=== PATIENT | female | born 1955 | race Hispanic/Latino ===

== ENCOUNTER 2019-09-14 11:31 | Emergency (ER) | payer OTHER ==
--- OUTSIDE RECORDS SUMMARY | 2019-09-14 11:33 | XMS REPORT ---
:1955 Author Organization eClinicalWorks Care Team Providers Name Role Phone Esther Garza Provider Role Unavailable Allergies, Adverse Reactions, Alerts Substance Reaction Event Type codeine Info Not Available Drug Allergy Problems Problem Type Condition Code Onset Dates Condition Status Problem Cancer C80.1 Active Problem Migraine G43.909 Active Problem Hypermagnesemia E83.41 Active Problem Change in bowel movement R19.8 Active Problem Dizziness R42 Active Problem Liver transplant status Z94.4 Active Problem Depression with anxiety F41.8 Active Problem Right wrist pain M25.531 Active Problem Hypertension, unspecified type I10 Active Assessment Liver transplant status Z94.4 Active Assessment Hypermagnesemia E83.41 Active Assessment Dizziness R42 Active Assessment Depression with anxiety F41.8 Active Assessment Hypertension, unspecified type I10 Active Medications Medication Code Code Instructions Start End Status Dosage System Date Date Cymbalta [facility] 92164308516 60 MG Orally Active 1 capsule Twice a day Zofran [facility] 49552511823 4 MG Orally Active not defined Lisinopril [facility] 53999511070 20 mg Orally December 13, Active 1 tablet Once a day 2017 Zoloft [facility] 14392760414 100 mg Orally Active 1 tablet Once a day Tacrolimus [facility] 37919187711 1 MG Orally Active not defined Sumatriptan [facility] [address]-84 6 MG/0.5ML Active 0.5 ml as Succinate Subcutaneous needed Twice a day Losartan [facility] 68374961233 50 MG Orally Active 1 tablet Potassium Once daily for high blood pressure Cymbalta [facility] 29893944413 30 MG Orally December 07, Active 1 capsule Once a day 2017 Amlodipine [facility] 78470364398 10 MG Orally Active 1 tablet Besylate Once a day for high blood pressure Pantoprazole [facility] 61557464984 40 MG Orally Active 1 tablet Sodium Once a day Ursodiol [facility] 27426131080 300 MG Orally Active not defined Magnesium Oxide [facility] 98873901200 400 MG Orally Active 1 tablet Once a day as needed Sertraline HCl [facility] 23667176733 100 mg Orally October Active 1 tablet Once a day 2017 Results No Known Results Summary Purpose eClinicalWorks Submission
--- OUTSIDE RECORDS SUMMARY | 2019-09-14 11:33 | XMS REPORT ---
:1955 Author Organization [employer] Care Team Providers Name Role Phone Esther Garza Provider Role Unavailable Allergies, Adverse Reactions, Alerts Substance Reaction Event Type codeine Info Not Available Drug Allergy Problems Problem Type Condition Code Onset Dates Condition Status Assessment Hypertension, unspecified type I10 Active Problem Migraine G43.909 Active Assessment Depression with anxiety F41.8 Active Assessment Liver transplant status Z94.4 Active Assessment Hypermagnesemia E83.41 Active Problem Change in bowel movement R19.8 Active Problem Right wrist pain M25.531 Active Problem Hypermagnesemia E83.41 Active Problem Depression with anxiety F41.8 Active Problem Cancer C80.1 Active Problem Hypertension, unspecified type I10 Active Problem Liver transplant status Z94.4 Active Medications Medication Code Code Instructions Start End Status Dosage System Date Date Ursodiol [facility] 06057708795 300 MG Orally Active not defined Zoloft [facility] 71967944597 100 mg Orally Active 1 tablet Once a day Sumatriptan [facility] [address]-26 6 MG/0.5ML Active 0.5 ml as Succinate Subcutaneous needed Twice a day Amlodipine [facility] 88476095818 10 MG Orally Active 1 tablet Besylate Once a day for high blood pressure Lisinopril [facility] 07614159416 20 mg Orally December 13, Active 1 tablet Once a day 2017 Pantoprazole [facility] 12713736699 40 MG Orally Active 1 tablet Sodium Once a day Tacrolimus [facility] 10102157479 1 MG Orally Active not defined Sertraline HCl ND 06861021187 100 mg Orally October Active 1 tablet Once a day 2017 Zofran [facility] 75195360100 4 MG Orally Active not defined Losartan [facility] 69275048133 25 mg Orally Active 1 tablet Potassium Once daily for high blood pressure Cymbalta [facility] 34642090635 30 MG Orally December 07, Active 1 capsule Once a day 2017 Cymbalta [facility] 18713418726 60 MG Orally Active 1 capsule Twice a day Magnesium Oxide [facility] 74379911558 400 MG Orally Active 1 tablet Once a day as needed Results No Known Results Summary Purpose eClinicalWorks Submission
--- OUTSIDE RECORDS SUMMARY | 2019-09-14 11:34 | XMS REPORT ---
:1955 [facility] Team Providers Name Role Phone Esther Garza Provider Role Unavailable Allergies No Known Allergies Problems Problem Type Condition Code Onset Dates Condition Status Problem Cancer C80.1 Active Problem Migraine G43.909 Active Assessment Encounter for immunization Z23 Active Problem Hypermagnesemia E83.41 Active Problem Change in bowel movement R19.8 Active Problem Dizziness R42 Active Problem Liver transplant status Z94.4 Active Problem Depression with anxiety F41.8 Active Problem Right wrist pain M25.531 Active Problem Hypertension, unspecified type I10 Active Medications Medication Code Code Instructions Start End Status Dosage System Date Date Lisinopril [facility] 78524710952 20 mg Orally December 13, Active 1 tablet Once a day 2017 Zoloft [facility] 04078084540 100 mg Orally Active 1 tablet Once a day Cymbalta [facility] 63411652213 60 MG Orally Active 1 capsule Twice a day Zofran [facility] 11453702559 4 MG Orally Active not defined Cymbalta [facility] 58241655644 30 MG Orally December 07, Active 1 capsule Once a day 2017 Pantoprazole [facility] 30027084542 40 MG Orally Active 1 tablet Sodium Once a day Tacrolimus [facility] 02644448142 1 MG Orally Active not defined Sumatriptan [facility] [address]-75 6 MG/0.5ML Active 0.5 ml as Succinate Subcutaneous needed Twice a day Ursodiol [facility] 82681432627 300 MG Orally Active not defined Sertraline HCl [facility] 06031668000 100 mg Orally Nanda Active 1 tablet Once a day 2017 Amlodipine [facility] 08315359431 10 MG Orally Active 1 tablet Besylate Once a day for high blood pressure Losartan [facility] 22455559312 50 MG Orally Active 1 tablet Potassium Once daily for high blood pressure Magnesium Oxide [facility] 80539158686 400 MG Orally Active 1 tablet Once a day as needed Results No Known Results Immunizations Vaccine Administration Date Prevnar 13 -Pneumonia Vaccine Sep 12, 2019 FLUZONE HIGH DOSE OVER 65 Sep 12, 2019 Summary Purpose eClinicalWorks Submission
--- NOTE | 2019-09-14 12:55 | RAD REPORT ---
EXAM DESCRIPTION: Fide Single View09/14/2019 12:44 pm CLINICAL HISTORY: Chest pain COMPARISON: 2013 FINDINGS: Lungs are moderately to markedly hyperaerated The lungs appear clear of acute infiltrate. The heart is normal size IMPRESSION: COPD without visualization acute abnormality
[2019-09-14 13:29] LABS: Absolute Lymphocytes (CBC) 1.9 K/uL (0.7-4.9); Basophils % 0.8 % (0-1.3); Hematocrit 42.6 % (36.0-45.0); Lymphocytes % 26.9 % (15.3-44.8); MPV 8.7 fL (7.6-11.3); RBC Red Blood Cell Count 4.86 M/uL (3.86-4.86)
[2019-09-14 13:38] LABS: Protime INR 0.95
[2019-09-14 13:48] LABS: ALT/SGPT 32 U/L (12-78); AST/SGOT 28 U/L (15-37); Albumin 3.9 g/dL (3.4-5.0); Alkaline Phosphatase 218 U/L (45-117); BUN Blood Urea Nitrogen 16 mg/dL (7-18); Bicarbonate 26 mmol/L (21-32); Bilirubin Direct 0.1 mg/dL (0-0.2); Bilirubin Total 0.4 mg/dL (0.2-1.0); Glucose Level 99 mg/dL (74-106); Magnesium 1.9 mg/dL (1.8-2.4); NT PRO-BNP 58 pg/mL (<125); Potassium 3.6 mmol/L (3.5-5.1); Protein, Total 7.5 g/dL (6.4-8.2); Sodium Level 140 mmol/L (136-145); Troponin (Emerg Dept Use Only) < 0.02 ng/mL (0.0-0.045)
--- NOTE | 2019-09-14 16:28 | ER ---
Nurse's Notes [facility] Name: Debra Oconnell Age: 64 yrs Sex: Female : 1955 Arrival Date: 09/14/2019 Time: 11:32 Bed 13 Private MD: Diagnosis: Chest pain, unspecified Presentation: 09/14 11:38 Presenting complaint: SOB and chest heaviness x 2 days. Pt stated "I think I have hb sepsis and I am a liver transplant patient and I just don't feel right.". Transition of care: patient was not received from another setting of care. Onset of symptoms was September 13, 2019. Risk Assessment: Do you want to hurt yourself or someone else? Patient reports no desire to harm self or others. Care prior to arrival: None. 11:38 Method Of Arrival: Ambulatory 11:38 Acuity: SANCHEZ 3 hb 16:10 Initial Sepsis Screen: Does the patient meet any 2 criteria? No. Patient's initial ph sepsis screen is negative. Does the patient have a suspected source of infection? No. Patient's initial sepsis screen is negative. Historical: - Allergies: 11:42 Codeine (Upset stomach); hb - Home Meds: 11:42 lisinopril 50 mg Oral tab [Active]; amlodipine oral [Active]; hb - PSHx: 11:42 Liver tansplant S/P 2008; Tonsillectomy; hb - Immunization history:: Adult Immunizations up to date. - Coronavirus screen:: The patient has NOT traveled to [place] in the past 14 days. The patient has NOT had contact with known/suspected case of Coronavirus? Proceed with normal triage procedures. - Social history:: Smoking status: Patient reports the use of cigarette tobacco products, smokes one-half pack cigarettes per day. - Ebola Screening: : No symptoms or risks identified at this time. Screenin:09 Abuse screen: Denies threats or abuse. Denies injuries from another. Nutritional ph screening: No deficits noted. Tuberculosis screening: No symptoms or risk factors identified. Fall Risk None identified. Assessment: 12:15 General: Appears in no apparent distress. comfortable, slender, well groomed, Behavior ph is cooperative, appropriate for age, anxious, Denies fever, feeling ill. Pain: Complains of pain in chest Pain does not radiate. Pain currently is 1 out of 10 on a pain scale. Quality of pain is described as "tightness". Neuro: Level of Consciousness is awake, alert, obeys commands, Oriented to person, place, time, situation. Cardiovascular: Capillary refill < 3 seconds in bilateral fingers Patient's skin is warm and dry. Respiratory: Airway is patent Respiratory effort is even, unlabored, Respiratory pattern is regular, symmetrical, Denies shortness of breath. GI: No signs and/or symptoms were reported involving the gastrointestinal system. Derm: Skin is intact, is healthy with good turgor, Skin is pink, warm \\T\\ dry. 14:00 Reassessment: Patient appears in no apparent distress at this time. Patient and/or ph family updated on plan of care and expected duration. Pain level reassessed. Patient is alert, oriented x 3, equal unlabored respirations, skin warm/dry/pink. 15:00 Reassessment: Patient appears in no apparent distress at this time. Patient and/or ph family updated on plan of care and expected duration. Pain level reassessed. Patient is alert, oriented x 3, equal unlabored respirations, skin warm/dry/pink. 16:12 Reassessment: Patient appears in no apparent distress at this time. Patient and/or ph family updated on plan of care and expected duration. Pain level reassessed. Patient is alert, oriented x 3, equal unlabored respirations, skin warm/dry/pink. Pt resting comfortably, awaiting results of repeat cardiac enzymes. Vital Signs: 11:42 BP 150 / 115; Pulse 110; Resp 16; Temp 98; Pulse Ox 100% on R/A; Weight 52.16 kg; hb Height 5 ft. 2 in. (157.48 cm); Pain 0/10; 13:00 BP 147 / 98; Pulse 86; Resp 18; Pulse Ox 99% on R/A; ph 14:54 BP 136 / 97; Pulse 84; Resp 18; Pulse Ox 98% on R/A; ph 16:13 BP 146 / 92; Pulse 83; Resp 18; Pulse Ox 98% on R/A; ph 16:40 Temp 97.8; ph 11:42 Body Mass Index 21.03 (52.16 kg, 157.48 cm) hb ED Course: 11:32 Patient arrived in ED. as 11:39 Triage completed. hb 11:42 Arm band placed on. hb 11:44 Margarita Delgado, RN is Primary Nurse. ph 11:49 Bib Oviedo MD is Attending Physician. kdr 12:43 X-ray completed. Portable x-ray completed in exam room. Patient tolerated procedure jb2 well. 12:46 XRAY Chest (1 view) In Process Unspecified. EDMS 13:15 Initial lab(s) drawn, by me, sent to lab. Inserted saline lock: 22 gauge in right ph antecubital area, using aseptic technique. 13:22 EKG done, by technical support associate. reviewed by Bib Oviedo MD. tc 16:10 Patient has correct armband on for positive identification. monitoring tech on. Pulse ph ox on. NIBP on. Door closed. Noise minimized. Warm blanket given. 16:11 No provider procedures requiring assistance completed. Patient maintains SpO2 ph saturation greater than 95% on room air. 16:48 IV discontinued, intact, bleeding controlled, No redness/swelling at site. Pressure hb dressing applied. Administered Medications: No medications were administered Outcome: 16:27 Discharge ordered by . kdr 16:48 Discharged to home ambulatory, with significant other. hb 16:48 Condition: stable 16:48 Discharge instructions given to patient, significant other, Instructed on discharge instructions, follow up and referral plans. medication usage, Demonstrated understanding of instructions, follow-up care, medications, Prescriptions given X 1. 16:48 Patient left the ED. hb Signatures: Dispatcher [employer] EDPA Bib Oviedo MD MD [facility] [address] Lyle Leyva jb2 Karla Travis Tiffany, pet caretaker EKG Ttc Margarita Delgado, RN RN Carlene Palumbo, EMIR RN hb
--- NOTE | 2019-09-14 16:28 | EDPHYS ---
Physician Documentation [facility] Name: Debra Oconnell Age: 64 yrs Sex: Female : 1955 Arrival Date: 09/14/2019 Time: 11:32 Bed 13 Private MD: ED Physician Bib Oviedo HPI: 09/14 14:26 This 64 yrs old Female presents to ER via Ambulatory with complaints of Chest kdr Pain. 14:26 The patient or guardian reports chest pain that is located primarily in the anterior kdr chest wall, bilaterally. Onset: gradually, 2 day(s) ago. The pain does not radiate. Associated signs and symptoms: Pertinent positives: Tingling to the 4th and 5th finger of the left hand. The chest pain is described as aching, dull, a pressure. Duration: The patient or guardian reports a single episode, that is still ongoing, but improving. Severity of pain: At its worst the pain was moderate severe in the emergency department the pain has improved markedly. The patient has not experienced similar symptoms in the past. The patient has not recently seen a physician. The patient is a liver transplant recipient and is concerned that she may be septic. Historical: - Allergies: 11:42 Codeine (Upset stomach); hb - Home Meds: 11:42 lisinopril 50 mg Oral tab [Active]; amlodipine oral [Active]; hb - PSHx: 11:42 Liver tansplant S/P 2008; Tonsillectomy; hb - Immunization history:: Adult Immunizations up to date. - Coronavirus screen:: The patient has NOT traveled to [place] in the past 14 days. The patient has NOT had contact with known/suspected case of Coronavirus? Proceed with normal triage procedures. - Social history:: Smoking status: Patient reports the use of cigarette tobacco products, smokes one-half pack cigarettes per day. - Ebola Screening: : No symptoms or risks identified at this time. ROS: 14:26 Constitutional: Negative for fever, chills, and weight loss, Eyes: Negative for injury, kdr pain, redness, and discharge, ENT: Negative for injury, pain, and discharge, Neck: Negative for injury, pain, and swelling, Respiratory: Negative for shortness of breath, cough, wheezing, and pleuritic chest pain, Abdomen/GI: Negative for abdominal pain, nausea, vomiting, diarrhea, and constipation, Back: Negative for injury and pain, : Negative for injury, bleeding, discharge, and swelling, MS/Extremity: Negative for injury and deformity, Skin: Negative for injury, rash, and discoloration, Neuro: Negative for headache, weakness, numbness, tingling, and seizure activity. Psych: Negative for depression, anxiety, suicide ideation, homicidal ideation, and hallucinations. Exam: 14:26 Constitutional: This is a well developed, well nourished patient who is awake, alert, kdr and in no acute distress. Head/Face: Normocephalic, atraumatic. Eyes: Pupils equal round and reactive to light, extra-ocular motions intact. Lids and lashes normal. Conjunctiva and sclera are non-icteric and not injected. Cornea within normal limits. Periorbital areas with no swelling, redness, or edema. Neck: Trachea midline, no thyromegaly or masses palpated, and no cervical lymphadenopathy. Supple, full range of motion without nuchal rigidity, or vertebral point tenderness. No Meningismus. Chest/axilla: Normal chest wall appearance and motion. Nontender with no deformity. No lesions are appreciated. Cardiovascular: Regular rate and rhythm with a normal S1 and S2. No gallops, murmurs, or rubs. Normal PMI, no JVD. No pulse deficits. Respiratory: Lungs have equal breath sounds bilaterally, clear to auscultation and percussion. No rales, rhonchi or wheezes noted. No increased work of breathing, no retractions or nasal flaring. Abdomen/GI: Soft, non-tender, with normal bowel sounds. No distension or tympany. No guarding or rebound. No evidence of tenderness throughout. Back: No spinal tenderness. No costovertebral tenderness. Full range of motion. Skin: Warm, dry with normal turgor. Normal color with no rashes, no lesions, and no evidence of cellulitis. MS/ Extremity: Pulses equal, no cyanosis. Neurovascular intact. Full, normal range of motion. Neuro: Awake and alert, GCS 15, oriented to person, place, time, and situation. Cranial nerves II-XII grossly intact. Motor strength 5/5 in all extremities. Sensory grossly intact. Cerebellar exam normal. Normal gait. Psych: Awake, alert, with orientation to person, place and time. Behavior, mood, and affect are within normal limits. Vital Signs: 11:42 BP 150 / 115; Pulse 110; Resp 16; Temp 98; Pulse Ox 100% on R/A; Weight 52.16 kg; hb Height 5 ft. 2 in. (157.48 cm); Pain 0/10; 13:00 BP 147 / 98; Pulse 86; Resp 18; Pulse Ox 99% on R/A; ph 14:54 BP 136 / 97; Pulse 84; Resp 18; Pulse Ox 98% on R/A; ph 16:13 BP 146 / 92; Pulse 83; Resp 18; Pulse Ox 98% on R/A; ph 16:40 Temp 97.8; ph 11:42 Body Mass Index 21.03 (52.16 kg, 157.48 cm) hb MDM: 14:26 Data reviewed: vital signs, nurses notes, lab test result(s), EKG, radiologic studies. kdr Counseling: I had a detailed discussion with the patient and/or guardian regarding: the historical points, exam findings, and any diagnostic results supporting the discharge/admit diagnosis, lab results, radiology results, the need for outpatient follow up. 16:27 Patient medically screened. [facility] 09/14 12:28 Order name: Basic Metabolic Panel; Complete Time: 14:23 kdr 09/14 12:28 Order name: CBC with Diff; Complete Time: 14:23 kdr 09/14 12:28 Order name: LFT's; Complete Time: 14:23 kdr 09/14 12:28 Order name: Magnesium; Complete Time: 14:23 [facility] 09/14 12:28 Order name: NT PRO-BNP; Complete Time: 14:23 kdr 09/14 12:28 Order name: PT-INR; Complete Time: 14:23 kdr 09/14 12:28 Order name: Troponin (emerg Dept Use Only); Complete Time: 14:23 kdr 09/14 12:28 Order name: XRAY Chest (1 view); Complete Time: 14:23 kdr 09/14 12:28 Order name: EKG; Complete Time: 12:30 kdr 09/14 12:28 Order name: Cardiac monitoring; Complete Time: 19:59 kdr 09/14 12:28 Order name: EKG - Nurse/Tech; Complete Time: 19:59 kdr 09/14 12:28 Order name: IV Saline Lock; Complete Time: 19:59 kdr 09/14 12:28 Order name: Labs collected and sent; Complete Time: 19:59 kdr 09/14 14:24 Order name: Troponin (emerg Dept Use Only); Complete Time: 16:26 kdr 09/14 12:28 Order name: O2 Per Protocol; Complete Time: 19:59 kdr 09/14 12:28 Order name: O2 Sat Monitoring; Complete Time: 19:59 kdr Administered Medications: No medications were administered Disposition: 09/14/19 16:27 Discharged to Home. Impression: Chest pain, unspecified. - Condition is Stable. - Discharge Instructions: Nonspecific Chest Pain, [id number]. - Prescriptions for Pepcid 20 mg Oral Tablet - take 1 tablet by ORAL route every 12 hours for 10 days; 20 tablet. - Medication Reconciliation Form, Thank You Letter form. - Follow up: Private Physician; When: 2 - 3 days; Reason: If symptoms return, Further diagnostic work-up, Recheck today's complaints, Continuance of care, Re-evaluation by your physician. - Problem is new. - Symptoms have improved. Signatures: Dispatcher [employer] EDMS Bib Oviedo MD MD kdr Carlene Palumbo RN RN hb Corrections: (The following items were deleted from the chart) 16:48 16:27 09/14/2019 16:27 Discharged to Home. Impression: Chest pain, unspecified. hb Condition is Stable. Forms are Medication Reconciliation Form, Thank You Letter, Antibiotic Education, Prescription Opioid Use. Follow up: Private Physician; When: 2 - 3 days; Reason: If symptoms return, Further diagnostic work-up, Recheck today's complaints, Continuance of care, Re-evaluation by your physician. Problem is new. Symptoms have improved. kdr
[2019-09-14 16:59] VITALS: TEMP 98
[2019-09-14 17:02] VITALS: O2SAT 98
[2019-09-14 17:03] VITALS: BP 146/92
--- NOTE | 2019-09-15 16:29 | EKG ---
Test Date: 2019-09-14 Test Time: 13:15:14 Plastics Tooling Engineer: BREA MEASUREMENT RESULTS: Intervals: Rate: 93 [place]: 172 QRSD: 78 QT: 362 QTc: 450 [place]: P: 72 [place]: 172 QRS: 41 T: 76 INTERPRETIVE STATEMENTS: Sinus rhythm with occasional premature ventricular complexes Septal infarct, age undetermined Abnormal ECG Compared to ECG 06/23/2014 00:42:58 Ventricular premature complex(es) now present Myocardial infarct finding still present Electronically Signed On 09-15-19 16:27:47 QUALITY ASSURANCE ADVISOR by Alek Smiley
== END 2019-09-14 16:48 | disposition home or self-care (01) ==
LOC: ER 11:31
DX: R07.9 Chest pain, unspecified (principal); Z88.6 Allergy status to analgesic agent; Z94.4 Liver transplant status; F17.210 Nicotine dependence, cigarettes, uncomplicated
CPT/HCPCS: 36415; 71045; 80048; 80076; 83735; 83880; 84484; 85025; 85610; 93005; 99285

== ENCOUNTER 2023-03-16 12:24 | Inpatient (IN) | payer OTHER ==
--- OUTSIDE RECORDS SUMMARY | 2023-03-16 12:31 | XMS REPORT | Continuity of Care Document ---
:1955 Author Organization [facility] t Address [address] [place] [address] Care Team Providers Name Role Phone Mary HOBBS, Luis Fernando Ross Primary Care Physician [phone] Alexa Mathews Attending Clinician Unavailable Esther Garza Attending Clinician Unavailable LAB90 Attending Clinician Unavailable NATA CAREY Attending Clinician Unavailable SHEMAR REEVES Attending Clinician Unavailable Hallie Clemons Attending Clinician Mare HOBBS, Wilfredo Handy Attending Clinician Ankit Man MD Attending Clinician Alan PEARSONSWChantell Attending Clinician Unavailable Elva HOBBS, Merlin Attending Clinician Palmer José MD Attending Clinician Neli Sarkar MA Attending Clinician Unavailable Travis Eid MD Attending Clinician Melony Turner RN Attending Clinician Unavailable Samuel FIELD, Jason Attending Clinician Unavailable Abbie FIELD, Sandee Attending Clinician Unavailable ANIL LOTT Attending Clinician Unavailable Aurelio GONZALEZ, Nata Attending Clinician Harsh-Nahum_A_AH Attending Clinician Unavailable Reggie_A_AH Admitting Clinician Unavailable Payers Payer Name Policy Type Policy Number Effective Date Expiration Date Cecile casey [employer] [place]P 7 [id number] 2021 CLASSIC NO 00:00:00 PREMIUM R2T [employer] C1 [id number] 2018 Common Sp allison PLANS 00:00:00 - [facility] [place]LLCARE OF [place] [id number] 2019 - [place] 00:00:00 (MEDICARE REPLACEMENT/ADV ANTAGE - HMO) Problems Condition Condition Condition Status Onset Resolution Last Treating Co mments Source Name Details Category Date Date Treatment Clinician Date 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 00:00: - depression depression 00 Ex terna l Hyperlipid Hyperlipid Disease Active K litzy emia emia 01-02 Seybold 00:00: - 00 Externa l Hyperlipid Hyperlipid Disease Active K litzy [place] emia 01-02 Seybold associated associated 00:00: with type with type 00 2 diabetes 2 diabetes mellitus mellitus Hypertensi Hypertensi Disease Active K elsey ve kidney ve kidney 01-02 Seyb old disease disease 00:00: - 00 Externa l Inguinal Inguinal Disease Active Metho di hernia hernia 08-06 st 00:00: Hospita 00 l Bilateral Bilateral Disease Active Met hodi inguinal inguinal 07-28 st hernia hernia 00:00: Hospita without without 00 l obstructio obstructio n or n or gangrene gangrene Liver Liver Disease Active 2015-07 [facility] transplant transplant 09-21 recipient recipient 00:00: Hosp claudia 00 l [id number] Depression Problem Active Com mon with Spirit anxiety - [facility] Cancer Cancer Problem Active Common [facility] [id number] Hypertensi Problem Active Com mon on, Spirit unspecifie - CHI d type [facility] [id number] Hypermagne Problem Active Com mon semia [facility] [id number] Elevated Problem Active Comm on alkaline Spirit phosphatas - CHI e level [facility] [id number] Hyperkalem Problem Active Com mon ia [facility] [id number] Hypercalce Problem Active Com mon boogie Spirit [facility] [id number] Labial Problem Active Common lesion [facility] [id number] Stage 3 Problem Active Commo n chronic Spirit kidney - CHI disease [facility] [id number] Type II Problem Active Common diabetes Spirit mellitus - [facility] Allergies, Adverse Reactions, Alerts Allergy Allergy Status Severity Reaction(s) Onset Inactive Treating Comm ents Source Name Type Date Date Clinician Sulfa Propensi Active Samira Drugs ty to 5-15 Seybold adverse 00:00: - reaction 00 Externa s l Codeine Propensi Active Other 2015-07 Nausea Samira ty to 16 and Seybold adverse 00:00: vomiting - reaction 00 Externa s l Codeine Propensi Active Other (See 2015-07 Nausea Met hodi ty to Comments) 09-[address] adverse 00:00: vomiting Hospita reaction 00 l s to drug codeine codeine Active Unknown Common [facility] - [facility] Social History Social Habit Start Date Stop Date Quantity Comments Source Gender identity [facility] Sexual orientation [facility] History of Tobacco Common [facility] - Use [facility] Tobacco use and 2023-01-03 2023-01-03 Smokeless Samira Se ybold - exposure 00:00:00 00:00:00 tobacco non-user External History of Social 2022-10-22 2022-10-[address] function 00:00:00 00:00:00 Hospital Alcohol intake 2020-05-07 2020-05-07 Current drinker [facility] dist 00:00:00 00:00:00 of alcohol Hospital (finding) Cigarettes smoked 2016-07-28 2016-07-[address] current (pack per 00:00:00 00:00:00 Hospita l day) - Reported Alcohol Comment 2016-07-28 2016-07-28 but quit 1 week Meth odist 00:00:00 00:00:00 ago Hospital Sex Assigned At [birth year] [facility] 00[facility] Smoking Status Start Date Stop Date Source Never smoked tobacco Samira Murphyyb old - External Former Smoker 2020-11-23 00:00:00 2020-11-23 00:00:00 Common S pirit - [facility] Ce nter Medications Ordered Filled Start Stop Current Ordering Indication Dosage Frequency Signature Comments Components Source Medication Medication Date Date Medication? Clinician (SIG) Name Name Pantoprazol Yes 40mg 1 tablet Ke lsey e Sodium 40 8-23 (40 mg Seybol d MG oral 08:59: total) by - Tablet 42 other Externa Delayed route. l Response Pantoprazol Yes 20mg 1 tablet Ke lsey e Sodium 20 8-23 (20 mg Seybol d MG oral 08:59: total) by - Tablet 42 other Externa Delayed route. l Response Biotin 1 MG Yes Biotin Martina ey oral 03-16 Seybold Capsule 08:58: - 49 Externa l Calcium Yes Take by Samira Carb-Cholec 03-16 mouth 3 Seybo ld alciferol 08:58: times - (Calcium 49 daily Externa 500 + D) l 500-125 MG-UNIT oral Tablet Multiple Yes Multi For Martina ey Vitamin 03-16 Her Seybold (MULTI-KITTY 08:58: - MIN DAILY 49 Externa OR) l Lancets Yes See Admin Kelse y does not 03-16 Instructio Seybo ld apply Misc 08:58: ns - 49 Externa l SUMAtriptan 2022- No every 12 K elsey Succinate 6 03-16-23 hours Seybol d MG/0.5ML 08:58: 00:00 - subcutaneou 09 :00 Externa s Solution l Auto-inject or Ondansetron 2022- No by other K elsey HCl 03-16 route Seybold (Zofran) 4 08:57: 00:00 - MG oral 02 :00 Externa Tablet l Calcium 2022- No Samira Citrate-Vit 03-16 Seybold porter D 08:56: 00:00 - (Calcium 05 :00 Externa Citrate + l D3) 200-250 MG-UNIT oral Tablet Budesonide- Yes [id number] 2{puff} Inhale 2 Samira Formoterol 03-16 puffs into Alvaro bold Fumarate 00:00: the lungs - (Symbicort) 00 2 times Exter na 160-4.5 daily. l MCG/ACT inhalation Aerosol Fluoxetine Yes [id number] 40mg Take 2 Samira HCl 20 MG 03-16 capsules Seybol d oral 00:00: (40 mg - Capsule 00 total) by Externa mouth l daily. Fluoxetine 2022- No [id number] 40mg Take 2 Samira HCl 20 MG 03-15 capsules Seybo ld oral 00:00: 00:00 by mouth - Capsule 00 :00 once daily Structures Engineer a l tacrolimus 2025- Yes [id number] .5mg QD Take 1 [facility] (Prograf) 03-[address] 0.5 MG 00:00: 04:59 (0.5 mg Hospita capsule 00 :00 total) by l mouth nightly. Biotin 1 MG Yes Biotin Martina ey oral 03-01 Seybold Capsule 07:52: - 15 Externa l Calcium Yes Take by Samira Carb-Cholec 03-01 mouth 3 Seybo ld alciferol 07:52: times - (Calcium 15 daily Externa 500 + D) l 500-125 MG-UNIT oral Tablet Calcium Yes Samira Citrate-Vit 03-01 Seybold porter D 07:52: - (Calcium 15 Externa Citrate + l D3) 200-250 MG-UNIT oral Tablet Multiple Yes Multi For Martina ey Vitamin 03-01 Her Seybold (MULTI-KITTY 07:52: - MIN DAILY 15 Externa OR) l SUMAtriptan Yes every 12 Ke lsey Succinate 6 8-08 hours Seybold MG/0.5ML 07:52: - subcutaneou 15 Externa s Solution l Auto-inject or Lancets Yes See Admin Kelse y does not 03-01 Instructio Seybo ld apply Misc 07:52: ns - 15 Externa l Ondansetron Yes by other Ke lsey HCl 03-01 route Seybold (Zofran) 4 07:52: - MG oral 15 Externa Tablet l Pantoprazol Yes 40mg 1 tablet Ke lsey e Sodium 40 8-08 (40 mg Seybol d MG oral 07:52: total) by - Tablet 15 other Externa Delayed route l Response Pantoprazol Yes 20mg 1 tablet Ke lsey e Sodium 20 8-08 (20 mg Seybol d MG oral 07:52: total) by - Tablet 15 other Externa Delayed route l Response Ondansetron Yes [id number] 4mg Q.[id number] Take 1 Samira (ZOFRAN) 4 8-08 [id number] tablet (4 Seybold MG oral 00:00: 3D mg total) - TABLET 00 by mouth Externa DISPERSIBLE every 8 l hours as needed for nausea Diphenoxyla Yes [id number] 1{tbl} Q.25D Take 1 Samira te-Atropine 8-08 tablet by Alvaro shen (Lomotil) 00:00: mouth 4 - 2.5-0.025 00 times Externa MG oral daily as l Tablet needed for diarrhea Azithromyci 2022-0 Yes [id number] Take 2 Samira n 500 MG 8-08 tabs today Seybo ld oral Tablet 00:00: and 1 tab - 00 for daily Externa for 4 days l Ondansetron 2022-0 Yes [id number] 4mg Q.[id number] Take 1 Samira (ZOFRAN) 4 8-08 [id number] tablet (4 Seybold MG oral 00:00: 3D mg total) - TABLET 00 by mouth Externa DISPERSIBLE every 8 l hours as needed for nausea Diphenoxyla 2022-0 Yes [id number] 1{tbl} Q.25D Take 1 Samira te-Atropine 8-08 tablet by Alvaro shen (Lomotil) 00:00: mouth 4 - 2.5-0.025 00 times Externa MG oral daily as l Tablet needed for diarrhea Azithromyci 2022-0 3- No [id number] Take 2 Samira n 500 MG 8-08 08-23 tabs today Seyb old oral Tablet 00:00: 00:00 and 1 tab - 00 :00 for daily Externa for 4 days l Propranolol 2022-0 Yes [id number] 20mg TAKE 2 Samira HCl 10 MG 8-07 TABLETS BY Seyb old oral Tablet 00:00: MOUTH - 00 THREE Externa TIMES l DAILY Propranolol 2022-0 Yes [id number] 20mg TAKE 2 Samira HCl 10 MG 8-07 TABLETS BY Seyb old oral Tablet 00:00: MOUTH - 00 THREE Externa TIMES l DAILY Losartan 3-0 Yes 25mg Take 1 Samira Potassium 7-31 tablet by Seybo ld 25 MG oral 00:00: mouth once - Tablet 00 daily Externa l Losartan 3-0 Yes 25mg Take 1 Samira Potassium 7-31 tablet by Seybo ld 25 MG oral 00:00: mouth once - Tablet 00 daily Externa l Biotin 1 MG 2022-0 Yes Biotin Martina ey oral 7-26 Seybold Capsule 08:01: - 14 Externa l Calcium 2022-0 Yes Take by Samira Carb-Cholec 02-16 mouth 3 Seybo ld alciferol 08:01: times - (Calcium 14 daily Externa 500 + D) l 500-125 MG-UNIT oral Tablet Calcium Yes Samira Citrate-Vit 02-16 Seybold porter D 08:01: - (Calcium 14 Externa Citrate + l D3) 200-250 MG-UNIT oral Tablet Multiple Yes Multi For Martina ey Vitamin 02-16 Her Seybold (MULTI-KITTY 08:01: - MIN DAILY 14 Externa OR) l SUMAtriptan Yes every 12 Ke lsey Succinate 6 - hours Seybold MG/0.5ML 08:01: - subcutaneou 14 Externa s Solution l Auto-inject or Lancets Yes See Admin Kelse y does not 02-16 Instructio Seybo ld apply Misc 08:01: ns - 14 Externa l Ondansetron Yes by other Ke lsey HCl 02-16 route Seybold (Zofran) 4 08:01: - MG oral 14 Externa Tablet l Pantoprazol Yes 40mg 1 tablet Ke lsey e Sodium 40 7- (40 mg Seybol d MG oral 08:01: total) by - Tablet 14 other Externa Delayed route l Response Pantoprazol Yes 20mg 1 tablet Ke lsey e Sodium 20 -26 (20 mg Seybol d MG oral 08:01: total) by - Tablet 14 other Externa Delayed route l Response Fluoxetine Yes [id number] 40mg Take 2 Samira HCl 20 MG 7-26 tablets Seybold oral Tablet 00:00: (40 mg - 00 total) by Externa mouth l daily Fluoxetine Yes [id number] 40mg Take 2 Samira HCl 20 MG 7-26 tablets Seybold oral Tablet 00:00: (40 mg - 00 total) by Externa mouth l daily Fluoxetine Yes 40mg Take 2 Kelse y HCl 20 MG 7-26 capsules Seybol d oral 00:00: (40 mg - Capsule 00 total) by Externa mouth l daily Fluoxetine 2022- No 40mg Take 2 Martina ey HCl 20 MG 7-26 08-23 capsules Seybo ld oral 00:00: 00:00 (40 mg - Capsule 00 :00 total) by Externa mouth l daily Biotin 1 MG Yes Biotin Martina ey oral 7-10 Seybold Capsule 08:24: - 59 Externa l Calcium Yes Take by Samira Carb-Cholec 7-10 mouth 3 Seybo ld alciferol 08:24: times - (Calcium 59 daily Externa 500 + D) l 500-125 MG-UNIT oral Tablet Calcium Yes Samira Citrate-Vit 7-10 Seybold porter D 08:24: - (Calcium 59 Externa Citrate + l D3) 200-250 MG-UNIT oral Tablet Multiple Yes Multi For Martina ey Vitamin 7-10 Her Seybold (MULTI-KITTY 08:24: - MIN DAILY 59 Externa OR) l SUMAtriptan Yes every 12 Ke lsey Succinate 6 7-10 hours Seybold MG/0.5ML 08:24: - subcutaneou 59 Externa s Solution l Auto-inject or Lancets Yes See Admin Kelse y does not 7-10 Instructio Seybo ld apply Misc 08:24: ns - 59 Externa l Ondansetron Yes by other Ke lsey HCl 7-10 route Seybold (Zofran) 4 08:24: - MG oral 59 Externa Tablet l Pantoprazol Yes 40mg 1 tablet Ke lsey e Sodium 40 7-10 (40 mg Seybol d MG oral 08:24: total) by - Tablet 59 other Externa Delayed route l Response Pantoprazol Yes 20mg 1 tablet Ke lsey e Sodium 20 7-10 (20 mg Seybol d MG oral 08:24: total) by - Tablet 59 other Externa Delayed route l Response tacrolimus Yes [id number] 2mg Q.5D Take 2 M ethodi (PROGRAF) 1 7-[address] MG capsule 00:00: (2 mg Hospit a 00 total) by l mouth 2 (two) times a day. Fluoxetine Yes [id number] 20mg Take 1 Samira HCl 20 MG 7-10 tablet (20 Seyb old oral Tablet 00:00: mg total) - 00 by mouth Externa daily l Propranolol 0 Yes [id number] 20mg Take 2 Samira HCl 10 MG 7-10 tablets Seybold oral Tablet 00:00: (20 mg - 00 total) by Externa mouth 3 l times daily Propranolol 0 Yes [id number] 20mg Take 2 Samira HCl 10 MG 7-10 tablets Seybold oral Tablet 00:00: (20 mg - 00 total) by Externa mouth 3 l times daily Fluoxetine 2022- No [id number] 20mg Take 1 Samira HCl 20 MG 7-10 07-26 tablet (20 Sey bold oral Tablet 00:00: 00:00 mg total) - 00 :00 by mouth Externa daily l Duloxetine Yes [id number] 30mg Take 1 Samira HCl 7-07 capsule Seybold (Cymbalta) 00:00: (30 mg - 30 MG oral 00 total) by Exte rna Cap DR mouth l Particles daily buPROPion 0 Yes [id number] 75mg Take 1 K elsey HCl 75 MG 7-07 tablet (75 Seyb old oral Tablet 00:00: mg total) - 00 by mouth Externa daily l buPROPion 0 Yes [id number] 75mg Take 1 K elsey HCl 75 MG 7-07 tablet (75 Seyb old oral Tablet 00:00: mg total) - 00 by mouth Externa daily l buPROPion 2022-0 Yes [id number] 75mg Take 1 K elsey HCl 75 MG 7-07 tablet (75 Seyb old oral Tablet 00:00: mg total) - 00 by mouth Externa daily l buPROPion 0 Yes [id number] 75mg Take 1 K elsey HCl 75 MG 7-07 tablet (75 Seyb old oral Tablet 00:00: mg total) - 00 by mouth Externa daily l Duloxetine 0 2022- No [id number] 30mg Take 1 Samira HCl 7-07 07-26 capsule Seybold (Cymbalta) 00:00: 00:00 (30 mg - 30 MG oral 00 :00 total) by Exte rna Cap DR mouth l Particles daily Escitalopra 2022- No [id number] 10mg Take 1 Samira m Oxalate 7-07 07-10 tablet (10 Sey bold 10 MG oral 00:00: 00:00 mg total) - Tablet 00 :00 by mouth Externa daily l tacrolimus 0 3- No [id number] .5mg QD Take 1 [facility] (Prograf) 01-17 08-[address] 0.5 MG 00:00: 00:00 (0.5 mg Hospita capsule 00 :00 total) by l mouth nightly. tacrolimus 2022- No [id number] 2mg Q.5D Take 2 [facility] (PROGRAF) 1 01-13 07-[address] MG capsule 00:00: 00:00 (2 mg Hospi ta 00 :00 total) by l mouth 2 (two) times a day. tacrolimus 2022- No [id number] .5mg QD Take 1 [facility] (Prograf) 01-11 06-[address] 0.5 MG 00:00: 00:00 (0.5 mg Hospita capsule 00 :00 total) by l mouth nightly. Biotin 1 MG Yes Biotin Martina ey oral 12 Seybold Capsule 08:59: - 44 Externa l Calcium Yes Take by Samira Carb-Cholec -12 mouth 3 Seybo ld alciferol 08:59: times - (Calcium 44 daily Externa 500 + D) l 500-125 MG-UNIT oral Tablet Calcium Yes Samira Citrate-Vit -12 Seybold porter D 08:59: - (Calcium 44 Externa Citrate + l D3) 200-250 MG-UNIT oral Tablet Multiple Yes Multi For Martina ey Vitamin 12 Her Seybold (MULTI-KITTY 08:59: - MIN DAILY 44 Externa OR) l SUMAtriptan Yes every 12 Ke lsey Succinate 6 6-12 hours Seybold MG/0.5ML 08:59: - subcutaneou 44 Externa s Solution l Auto-inject or Lancets Yes See Admin Kelse y does not 6-12 Instructio Seybo ld apply Misc 08:59: ns - 44 Externa l Ondansetron Yes by other Ke lsey HCl 6-12 route Seybold (Zofran) 4 08:59: - MG oral 44 Externa Tablet l Pantoprazol 2023-0 Yes 40mg 1 tablet Ke lsey e Sodium 40 6-12 (40 mg Seybol d MG oral 08:59: total) by - Tablet 44 other Externa Delayed route l Response Pantoprazol 2022-0 Yes 20mg 1 tablet Ke lsey e Sodium 20 6-12 (20 mg Seybol d MG oral 08:59: total) by - Tablet 44 other Externa Delayed route l Response Duloxetine 2022-0 Yes [id number] 30mg Take 1 Samira HCl 6-12 capsule Seybold (Cymbalta) 00:00: (30 mg - 30 MG oral 00 total) by Exte rna Cap DR mouth l Particles daily DULoxetine 2022-0 Yes 60mg QD Take 1 Metho di (CYMBALTA) 6-[address] 60 MG 09:13: (60 mg Hospita capsule 03 total) by l mouth daily. buPROPion 2022-0 Yes 75mg QD Take 1 Method i (WELLBUTRIN 6-06 tablet (75 st ) 75 MG 09:13: mg total) Hospi ta tablet 03 by mouth l nightly. escitalopra 2022-0 Yes 10mg QD Take 1 Meth neo m (LEXAPRO) 6-06 tablet (10 st 10 MG 09:13: mg total) Hospita tablet 03 by mouth l daily. Amlodipine 2022-0 Yes [id number] Take 1 K elsey Besylate 10 5-29 tablet by Sey bold MG oral 00:00: mouth once - Tablet 00 daily Externa l Amlodipine 2022-0 Yes [id number] Take 1 K elsey Besylate 10 5-29 tablet by Sey bold MG oral 00:00: mouth once - Tablet 00 daily Externa l Amlodipine 2022-0 Yes [id number] Take 1 K elsey Besylate 10 5-29 tablet by Sey bold MG oral 00:00: mouth once - Tablet 00 daily Externa l Amlodipine 2022-0 Yes [id number] Take 1 K elsey Besylate 10 5-29 tablet by Sey bold MG oral 00:00: mouth once - Tablet 00 daily Externa l Amlodipine 2022-0 Yes [id number] Take 1 K elsey Besylate 10 5-29 tablet by Sey bold MG oral 00:00: mouth once - Tablet 00 daily Externa l Blood 2022-0 2022- No See Admin Samira Glucose 5-15 05-15 Instructio Seybo ld Monitoring 10:16: 00:00 ns - Suppl 20 :00 Externa (Blood l Glucose Monitor System) w/Device does not apply Kit Metformin 2022- No 500mg Take 1 Martina ey HCl 500 MG 5-15 05-15 tablet Seybol d oral Tablet 10:12: 00:00 (500 mg - 50 :00 total) by Externa mouth l after breakfast Biotin 1 MG Yes Biotin Martina ey oral 5-15 Seybold Capsule 09:49: - 18 Externa l Calcium Yes Take by Samira Carb-Cholec 5-15 mouth 3 Seybo ld alciferol 09:49: times - (Calcium 18 daily Externa 500 + D) l 500-125 MG-UNIT oral Tablet Calcium Yes Samira Citrate-Vit 5-15 Seybold porter D 09:49: - (Calcium 18 Externa Citrate + l D3) 200-250 MG-UNIT oral Tablet SUMAtriptan Yes every 12 Ke lsey Succinate 6 5-15 hours Seybold MG/0.5ML 09:49: - subcutaneou 18 Externa s Solution l Auto-inject or Lancets Yes See Admin Kelse y does not 5-15 Instructio Seybo ld apply Misc 09:49: ns - 18 Externa l Ondansetron Yes by other Ke lsey HCl 5-15 route Seybold (Zofran) 4 09:49: - MG oral 18 Externa Tablet l Pantoprazol Yes 40mg 1 tablet Medhat lsey e Sodium 40 5-15 (40 mg Seybol d MG oral 09:49: total) by - Tablet 18 other Externa Delayed route l Response Duloxetine Yes [id number] 60mg Take 1 Samira HCl 60 MG 5-15 capsule Seybold oral Cap DR 00:00: (60 mg - Particles 00 total) by Exter na mouth l daily Escitalopra Yes [id number] 10mg Take 1 Samira m Oxalate 5-15 tablet (10 Seyb old (Lexapro) 00:00: mg total) - 10 MG oral 00 by mouth Exter na Tablet daily l buPROPion Yes [id number] 75mg Take 1 K elsey HCl 75 MG 5-15 tablet (75 Seyb old oral Tablet 00:00: mg total) - 00 by mouth Externa daily l Nitrofurant Yes [id number] 100mg Take 1 Samira oin Monohyd 5-15 capsule Seybo ld Macro 00:00: (100 mg - (Macrobid) 00 total) by Exte rna 100 MG oral mouth 2 l Capsule times daily Duloxetine 2022- No [id number] 60mg Take 1 Samira HCl 60 MG 5-15 06-12 capsule Seybol d oral Cap DR 00:00: 00:00 (60 mg - Particles 00 :00 total) by Exter na mouth l daily Escitalopra 2022- No [id number] 10mg Take 1 Samira m Oxalate 5-15 06-12 tablet (10 Sey bold (Lexapro) 00:00: 00:00 mg total) - 10 MG oral 00 :00 by mouth Exter na Tablet daily l buPROPion 2022- No [id number] 75mg Take 1 Samira HCl 75 MG 5-15 06-12 tablet (75 Sey bold oral Tablet 00:00: 00:00 mg total) - 00 :00 by mouth Externa daily l Nitrofurant 2022- No [id number] 100mg Take 1 Samira oin Monohyd 5-15 06-12 capsule Seyb old Macro 00:00: 00:00 (100 mg - (Macrobid) 00 :00 total) by Exte rna 100 MG oral mouth 2 l Capsule times daily Multiple Yes Multi For Martina ey Vitamin 4-12 Her Seybold (MULTI-KITTY 10:35: - MIN DAILY 09 Externa OR) l Amlodipine Yes [id number] Take 1 K elsey Besylate 10 2-26 tablet by Sey bold MG oral 00:00: mouth once - Tablet 00 daily Externa l Ursodiol Yes [id number] 300mg Take 1 K elsey 300 MG oral 2-24 capsule Seybo ld Capsule 00:00: (300 mg - 00 total) by Externa mouth 2 l times daily Ursodiol Yes [id number] 300mg Take 1 K elsey 300 MG oral 2-24 capsule Seybo ld Capsule 00:00: (300 mg - 00 total) by Externa mouth 2 l times daily Ursodiol 0 Yes [id number] 300mg Take 1 K elsey 300 MG oral 2-24 capsule Seybo ld Capsule 00:00: (300 mg - 00 total) by Externa mouth 2 l times daily Ursodiol 2022-0 Yes [id number] 300mg Take 1 K elsey 300 MG oral 2-24 capsule Seybo ld Capsule 00:00: (300 mg - 00 total) by Externa mouth 2 l times daily Ursodiol 0 Yes [id number] 300mg Take 1 K elsey 300 MG oral 2-24 capsule Seybo ld Capsule 00:00: (300 mg - 00 total) by Externa mouth 2 l times daily Ursodiol 0 Yes [id number] 300mg Take 1 K elsey 300 MG oral 2-24 capsule Seybo ld Capsule 00:00: (300 mg - 00 total) by Externa mouth 2 l times daily Losartan 2021-07 Yes 25mg Take 1 Samira Potassium 1-07 tablet (25 Seyb old 25 MG oral 00:00: mg total) - Tablet 00 by mouth Externa daily l Losartan 2021-07 Yes 25mg Take 1 Samira Potassium 1-07 tablet (25 Seyb old 25 MG oral 00:00: mg total) - Tablet 00 by mouth Externa daily l Losartan 2021-07 Yes 25mg Take 1 Samira Potassium 1-07 tablet (25 Seyb old 25 MG oral 00:00: mg total) - Tablet 00 by mouth Externa daily l Losartan 2021-07 Yes 25mg Take 1 Samira Potassium 1-07 tablet (25 Seyb old 25 MG oral 00:00: mg total) - Tablet 00 by mouth Externa daily l Duloxetine 2021-07- No Take 1 Martina ey HCl 60 MG 0-25 05-15 capsule by Sey bold oral Cap DR 00:00: 00:00 mouth - Particles 00 :00 twice Externa daily l tacrolimus 0 2024- No [id number] .5mg QD Take 1 [facility] (Prograf) 6-12 01-[address] 0.5 MG 00:00: 04:59 (0.5 mg Hospita capsule 00 :00 total) by l mouth nightly. tacrolimus 2024- No [id number] .5mg QD Take 1 [facility] (Prograf) 01-12- capsule st 0.5 MG 00:00: 04:59 (0.5 mg Hospita capsule 00 :00 total) by l mouth nightly. tacrolimus 2022- No [id number] Take 3 [facility] (PROGRAF) 1 01-12- capsules st MG capsule 00:00: 00:00 (3 mg Hospi ta 00 :00 total) by l mouth every morning AND 2 capsules (2 mg total) every evening. tacrolimus 2022- No [id number] Take 3 [facility] (PROGRAF) 1 01-12- capsules st MG capsule 00:00: 04:59 (3 mg Hospi ta 00 :00 total) by l mouth every morning AND 2 capsules (2 mg total) every evening. tacrolimus 2022- No [id number] Take 3 [facility] (PROGRAF) 1 01-12- capsules st MG capsule 00:00: 04:59 (3 mg Hospi ta 00 :00 total) by l mouth every morning AND 2 capsules (2 mg total) every evening. tacrolimus 2022- No [id number] .5mg QD Take 1 [facility] (Prograf) 01-12- capsule st 0.5 MG 00:00: 00:00 (0.5 mg Hospita capsule 00 :00 total) by l mouth nightly. ursodioL Yes [id number] Take 1 Me thodi (ACTIGALL) 5-[address] 300 mg 00:00: mouth Hospita capsule 00 twice l daily ursodioL Yes [id number] Take 1 [facility] (ACTIGALL) 5-[address] 300 mg 00:00: mouth [facility]osp[facility] capsule 00 twice l daily ursodioL Yes [id number] Take 1 [facility] (ACTIGALL) 5-[address] 300 mg 00:00: mouth [facility] capsule 00 twice l daily Vitamin D, Yes [id number] Take 1 [facility]ira Ergocalcife 4-05 capsule Seybo ld rol, 1.25 00:00: (50,000 - MG (17317 00 units Externa UT) oral total) by l Capsule mouth once a week Vitamin D, Yes [id number] Take 1 Samira Ergocalcife 4-05 capsule Seybo ld rol, 1.25 00:00: (50,000 - MG (33212 00 units Externa UT) oral total) by l Capsule mouth once a week Vitamin D, Yes [id number] Take 1 Samira Ergocalcife 4-05 capsule Seybo ld rol, 1.25 00:00: (50,000 - MG (14760 00 units Externa UT) oral total) by l Capsule mouth once a week Vitamin D, Yes [id number] Take 1 Samira Ergocalcife 4-05 capsule Seybo ld rol, 1.25 00:00: (50,000 - MG (34882 00 units Externa UT) oral total) by l Capsule mouth once a week Vitamin D, Yes [id number] Take 1 Samira Ergocalcife 4-05 capsule Seybo ld rol, 1.25 00:00: (50,000 - MG (01972 00 units Externa UT) oral total) by l Capsule mouth once a week Vitamin D, Yes [id number] Take 1 Samira Ergocalcife 4-05 capsule Seybo ld rol, 1.25 00:00: (50,000 - MG (27691 00 units Externa UT) oral total) by l Capsule mouth once a week Losartan Yes 25mg Take 25 mg Manny sey Potassium 2-09 by mouth Seybol d 25 MG oral 09:57: daily Tablet 15 Metformin Yes 500mg Take 500 Manny sey HCl 500 MG 2-09 mg by Seybold oral Tablet 09:17: mouth 48 after breakfast Biotin 1 MG 2021-0 Yes Biotin Martina ey oral 2-09 Seybold Capsule 09:17: 48 Calcium Yes Take by Samira Carb-Cholec 2-09 mouth 3 Seybo ld alciferol 09:17: times (Calcium 48 daily 500 + D) 500-125 MG-UNIT oral Tablet Calcium Yes Samira Citrate-Vit 2-09 Seybold porter D 09:17: (Calcium 48 Citrate + D3) 200-250 MG-UNIT oral Tablet Duloxetine Yes 1{capsu 1 capsule Samira HCl 60 MG 2-09 le} Seybold oral Cap DR 09:17: Particles 48 Multiple Yes Multi For Martina ey Vitamin 2- Her Seybold (MULTI-KITTY 09:17: MIN DAILY 48 OR) SUMAtriptan Yes every 12 Ke lsey Succinate 6 2-09 hours Seybold MG/0.5ML 09:17: subcutaneou 48 s Solution Auto-inject or Blood Yes See Admin Samira Glucose 2 Instructio Seybol d Monitoring 09:17: ns Suppl 48 (Blood Glucose Monitor System) w/Device does not apply Kit Lancets Yes See Admin Kelse y does not 2 Instructio Seybo ld apply Misc 09:17: ns 48 Ondansetron Yes by other Ke lsey HCl 2-09 route Seybold (Zofran) 4 09:17: MG oral 48 Tablet Pantoprazol Yes 1{tbl} 1 tablet Samira e Sodium 40 2-09 by other Seyb old MG oral 09:17: route Tablet 48 Delayed Response Sertraline Yes 1{tbl} 1 tablet K elsey HCl 2-09 by other Seybold (Zoloft) 09:17: route 100 MG oral 48 Tablet Amlodipine Yes [id number] 10mg Take 1 K elsey Besylate 10 2-09 tablet (10 Se ybold MG oral 00:00: mg total) Tablet 00 by mouth daily Losartan Yes [id number] 50mg Take 1 Manny sey Potassium 2-09 tablet (50 Seyb old 50 MG oral 00:00: mg total) Tablet 00 by mouth as needed Losartan 2021-0 2022- No [id number] 50mg Take 1 Ke lsey Potassium 2-09 05-15 tablet (50 Sey bold 50 MG oral 00:00: 00:00 mg total) - Tablet 00 :00 by mouth Externa as needed l Amlodipine 0 2021- No Take 1 Martina ey Besylate 10 1-31 02-09 tablet by Se ybold MG oral 00:00: 00:00 mouth once Tablet 00 :00 daily Tacrolimus Yes TAKE 3 Kelse y 1 MG oral 1-19 CAPSULES Seybol d Capsule 00:00: BY MOUTH - 00 ONCE DAILY Externa IN THE l MORNING , THEN TAKE 2 CAPSULES IN THE EVENING Tacrolimus Yes TAKE 3 Kelse y 1 MG oral 1-19 CAPSULES Seybol d Capsule 00:00: BY MOUTH - 00 ONCE DAILY Externa IN THE l MORNING , THEN TAKE 2 CAPSULES IN THE EVENING Tacrolimus Yes TAKE 3 Kelse y 1 MG oral 1-19 CAPSULES Seybol d Capsule 00:00: BY MOUTH - 00 ONCE DAILY Externa IN THE l MORNING , THEN TAKE 2 CAPSULES IN THE EVENING Tacrolimus Yes TAKE 3 Kelse y 1 MG oral 1-19 CAPSULES Seybol d Capsule 00:00: BY MOUTH - 00 ONCE DAILY Externa IN THE l MORNING , THEN TAKE 2 CAPSULES IN THE EVENING Tacrolimus Yes TAKE 3 Kelse y 1 MG oral 1-19 CAPSULES Seybol d Capsule 00:00: BY MOUTH - 00 ONCE DAILY Externa IN THE l MORNING , THEN TAKE 2 CAPSULES IN THE EVENING Tacrolimus Yes TAKE 3 Kelse y 1 MG oral 1-19 CAPSULES Seybol d Capsule 00:00: BY MOUTH - 00 ONCE DAILY Externa IN THE l MORNING , THEN TAKE 2 CAPSULES IN THE EVENING Tacrolimus Yes TAKE 3 Kelse y 1 MG oral 1-19 CAPSULES Seybol d Capsule 00:00: BY MOUTH 00 ONCE DAILY IN THE MORNING , THEN TAKE 2 CAPSULES IN THE EVENING Duloxetine Yes Take 1 Kelse y HCl 60 MG 1-17 capsule by Js tidwell oral Cap 00:00: mouth Particles 00 twice daily Vitamin D, 2020-07 Yes Take 1 Kelse y Ergocalcife 2-20 capsule by Se mendy geronimo, 1.25 00:00: mouth once MG (59093 00 a week UT) oral Capsule Losartan 2021- No 50mg Take 1 Samira Potassium 04-14- tablet (50 Sey bold 50 MG oral 00:00: 00:00 mg total) Tablet 00 :00 by mouth daily tacrolimus 2021- No .5mg QD Take 1 Meth neo (Prograf) 02-[address] 0.5 MG 00:00: 00:00 (0.5 mg Hospita capsule 00 :00 total) by l mouth nightly. tacrolimus 2021- No [id number] 3mg in AM [facility] (PROGRAF) 1 02-20 and 2mg in s t MG capsule 00:00: 00:00 PM Hospit a 00 :00 l tacrolimus 2020-2021- No .5mg QD Take 1 Meth neo (Prograf) 02-[address] 0.5 MG 00:00: 00:00 (0.5 mg Hospita capsule 00 :00 total) by l mouth nightly. tacrolimus 2021- No [id number] 3mg in AM [facility] (PROGRAF) 1 02-20 and 2mg in s t MG capsule 00:00: 00:00 PM Hospit a 00 :00 l ursodioL Yes [id number] 300mg Q.5D Take 1 M [facility]i (ACTIGALL) 12-[address] 300 mg 00:00: (300 mg Hospita capsule 00 total) by l mouth 2 (two) times a day. ursodioL Yes [id number] 300mg Q.5D Take 1 M [facility]i (ACTIGALL) - capsule st 300 mg 00:00: (300 mg Hospita capsule 00 total) by l mouth 2 (two) times a day. Ursodiol Yes 1{capsu Take 1 Martina ey 300 MG oral 12-25 le} capsule by Se ybold Capsule 00:00: mouth 2 00 times daily ursodioL 2020-0 3- No [id number] 300mg Q.5D Take 1 [facility] (ACTIGALL) 6-09 27- capsule st 300 mg 00:00: 00:00 (300 mg Hospita capsule 00 :00 total) by l mouth 2 (two) times a day. Tacrolimus 2020-0 2024- No .5mg Take 1 Martina ey 0.5 MG oral 5-21 -22 capsule Seyb old Capsule 00:00: 04:59 (0.5 mg - 00 :00 total) by Externa mouth l every morning Tacrolimus 2020-0 2023- No .5mg Take 1 Martina ey 0.5 MG oral 5-21 05-22 capsule Seyb old Capsule 00:00: 04:59 (0.5 mg - 00 :00 total) by Externa mouth l every morning Tacrolimus 2021-0 2024- No .5mg Take 1 Martina ey 0.5 MG oral 5-21 -22 capsule Seyb old Capsule 00:00: 04:59 (0.5 mg - 00 :00 total) by Externa mouth l every morning Tacrolimus 2021-0 2024- No .5mg Take 1 Martina ey 0.5 MG oral 5-21 -22 capsule Seyb old Capsule 00:00: 04:59 (0.5 mg - 00 :00 total) by Externa mouth l every morning Tacrolimus 2021-0 2024- No .5mg Take 1 Martina ey 0.5 MG oral 5-21 -22 capsule Seyb old Capsule 00:00: 04:59 (0.5 mg - 00 :00 total) by Externa mouth l every morning Tacrolimus 2021-0 2024- No .5mg Take 0.5 Ke lsey 0.5 MG oral 5-21 -22 mg by Seybol d Capsule 00:00: 04:59 mouth 00 :00 every morning Tacrolimus 2021-0 2024- No .5mg Take 1 Martina ey 0.5 MG oral 5-21 -22 capsule Seyb old Capsule 00:00: 04:59 (0.5 mg - 00 :00 total) by Externa mouth l every morning. magnesium 2021-0 Yes 400mg QD Take 1 Metho di oxide 5-[address] (MAG-OX) 00:00: (400 mg Hospit a 400 mg 00 total) by l (241.3 mg mouth magnesium) daily. tablet magnesium 2021-0 Yes 400mg QD Take 1 Metho di oxide 5-[address] (MAG-OX) 00:00: (400 mg Hospit a 400 mg 00 total) by l (241.3 mg mouth magnesium) daily. tablet magnesium 2021-0 Yes 400mg QD Take 1 Metho di oxide 5-[address] (MAG-OX) 00:00: (400 mg Hospit a 400 mg 00 total) by l (241.3 mg mouth magnesium) daily. tablet Magnesium 2021-0 Yes 400mg Take 1 Kelse y oxide 5-19 tablet Seybold (MAG-OX) 00:00: (400 mg - 400 MG oral 00 total) by Ext onesimo Tablet mouth l daily Magnesium 1-0 Yes 400mg Take 1 Kelse y oxide 5-19 tablet Seybold (MAG-OX) 00:00: (400 mg - 400 MG oral 00 total) by Ext onesimo Tablet mouth l daily Magnesium 2021-0 Yes 400mg Take 1 Kelse y oxide 5-19 tablet Seybold (MAG-OX) 00:00: (400 mg - 400 MG oral 00 total) by Ext onesimo Tablet mouth l daily Magnesium 1-0 Yes 400mg Take 1 Kelse y oxide 5-19 tablet Seybold (MAG-OX) 00:00: (400 mg - 400 MG oral 00 total) by Ext onesimo Tablet mouth l daily Magnesium 2020-0 Yes 400mg Take 400 Manny sey oxide 5-19 mg by Seybold (MAG-OX) 00:00: mouth 400 MG oral 00 daily Tablet Magnesium 1-0 2023- No 400mg Take 1 Martina ey oxide 5-19 08-08 tablet Seybold (MAG-OX) 00:00: 00:00 (400 mg - 400 MG oral 00 :00 total) by Ext onesimo Tablet mouth l daily Mycophenola 1-0 Yes 500mg Take 1 Manny sey te Mofetil 5-17 tablet Seybold 500 MG oral 00:00: (500 mg - Tablet 00 total) by Externa mouth 2 l times daily Mycophenola 1-0 Yes 500mg Take 1 Manny sey te Mofetil 5-17 tablet Seybold 500 MG oral 00:00: (500 mg - Tablet 00 total) by Externa mouth 2 l times daily Mycophenola 1-0 Yes 500mg Take 1 Manny sey te Mofetil 5-17 tablet Seybold 500 MG oral 00:00: (500 mg - Tablet 00 total) by Externa mouth 2 l times daily Mycophenola 1-0 Yes 500mg Take 1 Manny sey te Mofetil 5-17 tablet Seybold 500 MG oral 00:00: (500 mg - Tablet 00 total) by Externa mouth 2 l times daily Mycophenola 2021-0 Yes 500mg Take 1 Manny sey te Mofetil 5-17 tablet Seybold 500 MG oral 00:00: (500 mg - Tablet 00 total) by Externa mouth 2 l times daily Mycophenola Yes 1{tbl} Take 1 Ke lsey te Mofetil 5-17 tablet by Seyb old 500 MG oral 00:00: mouth 2 Tablet 00 times daily Mycophenola Yes 500mg Take 1 Manny sey te Mofetil 5-17 tablet Seybold 500 MG oral 00:00: (500 mg - Tablet 00 total) by Externa mouth 2 l times daily. Albuterol Albuterol 2019-07 No 2{puffs 6xD Albuterol Sulfate HFA Sulfate HFA 2-21 _as_nee Sulfate 108 (90 108 (90 00:00: ded} HFA 108 Base) Base) 00 (90 Base) MCG/ACT MCG/ACT MCG/ACT Singulair Singulair 2019-07 No 1{table QD Singulair 10 MG 10 MG 2-21 t} 10 MG 00:00: 00 Pulse Pulse 2019-07 No Pulse Oximeter Oximeter 2-21 Oximeter For Finger For Finger 00:00: For Finger - - - Albuterol Albuterol 2019-07 No 2{puffs 6xD Albuterol Sulfate HFA Sulfate HFA 2-21 _as_nee Sulfate 108 (90 108 (90 00:00: ded} HFA 108 Base) Base) 00 (90 Base) MCG/ACT MCG/ACT MCG/ACT Singulair Singulair 2019-07 No 1{table QD Singulair 10 MG 10 MG 2-21 t} 10 MG 00:00: 00 Pulse Pulse 2019-07 No Pulse Oximeter Oximeter 2-21 Oximeter For Finger For Finger 00:00: For Finger - - - Albuterol Albuterol 2019-07 No 2{puffs 6xD Albuterol Sulfate HFA Sulfate HFA 2-21 _as_nee Sulfate 108 (90 108 (90 00:00: ded} HFA 108 Base) Base) 00 (90 Base) MCG/ACT MCG/ACT MCG/ACT Pulse Pulse 2019-07 No Pulse Oximeter Oximeter 2-21 Oximeter For Finger For Finger 00:00: For Finger - - - Singulair Singulair 2019-07 No 1{table QD Singulair 10 MG 10 MG 2-21 t} 10 MG 00:00: 00 Zyrtec Zyrtec 2020-1 2021- No 1{table BID Zyrtec Allergy 10 Allergy 10 09-14 t} Allergy 10 MG MG 00:00: 00:00 MG 00 :00 Zyrtec Zyrtec 2019-07- No 1{table BID Zyrtec Allergy 10 Allergy 10 09-14 t} Allergy 10 MG MG 00:00: 00:00 MG 00 :00 Zithromax Zithromax 2019-07 2020- No 1{table QD Zithromax 500 MG 500 MG 09-14 t} 500 MG 00:00: 00:00 00 :00 Zithromax Zithromax 2019-07 2020- No 1{table QD Zithromax 500 MG 500 MG 09-14 t} 500 MG 00:00: 00:00 00 :00 ergocalcife 2019-07 Yes [id number] Q7D Take 1 [facility] rol 0-[address] (Vitamin 00:00: (50,000 Hospit a D2) 50,000 00 Units l unit total) by capsule mouth once a week. ergocalcife 2019-07 Yes [id number] Q7D Take 1 [facility] rol 0-[address] (Vitamin 00:00: (50,000 Hospit a D2) 50,000 00 Units l unit total) by capsule mouth once a week. ergocalcife 2020- Yes [id number] Q7D Take 1 Me thodi rol 0-[address] (Vitamin 00:00: (50,000 Hospit a D2) 50,000 00 Units l unit total) by capsule mouth once a week. Metformin Metformin 2019-0 Yes Esther 1 tablet Common HCl HCl 3-17 [facility] with a Spirit 00:00: meal - [facility] 00 [facility] Blood Blood 2020-0 Yes Esther as Common Glucose Glucose 3-17 [facility]ender directed [facility] Monitor Monitor 00:00: - [facility] System System 00 [facility] Blood Blood 2020-0 Yes Esther as Common Glucose Glucose 3-17 [facility] directed [facility] Test Test 00:00: - [facility] Lancets Lancets 2020-0 Yes Esther as Common 3-17 [facility] directed [facility] 00:00: - [facility] Lancets - Lancets - 2020-0 No Lancets - 3-17 00:00: 00 Blood Blood 2019-0 No Blood Glucose Glucose 3-17 Glucose Monitor Monitor 00:00: Monitor System System 00 System w/Device w/Device w/Device Blood Blood 2019-0 No Blood Glucose Glucose 3-17 Glucose Test - Test - 00:00: Test - 00 Lancets - Lancets - 2019-0 No Lancets - 3-17 00:00: 00 Blood Blood 2020-0 No Blood Glucose Glucose 3-17 Glucose Monitor Monitor 00:00: Monitor System System 00 System w/Device w/Device w/Device Blood Blood 2019-0 No Blood Glucose Glucose 3-17 Glucose Monitor Monitor 00:00: Monitor System System 00 System w/Device w/Device w/Device Lancets - Lancets - 0 No Lancets - 3-17 00:00: 00 Metformin Metformin No 1{table BID Metformin HCl 500 MG HCl 500 MG 3-17 t_with_ HCl 500 MG 00:00: a_meal} 00 Blood Blood 2019-0 No Blood Glucose Glucose 3-17 Glucose Test - Test - 00:00: Test - Blood Blood 2019-0 No Blood Glucose Glucose 3-17 Glucose Test - Test - 00:00: Test - 00 CALCIUM Yes [id number] Take by M ethodi CARBONATE 1-02 [id number] mouth 3 s t (CALCIUM 10:19: 3D (three) Hospit a 500 ORAL) 06 times a l day. CALCIUM Yes [id number] Take by M ethodi CARBONATE 1-02 [id number] mouth 3 s t (CALCIUM 10:19: 3D (three) Hospit a 500 ORAL) 06 times a l day. CALCIUM Yes [id number] Take by M ethodi CARBONATE 1-02 [id number] mouth 3 s t (CALCIUM 10:19: 3D (three) Hospit a 500 ORAL) 06 times a l day. Lisinopril Lisinopril Yes Esther 1 tablet Common 5-22 [facility] 00:00: - [facility] 00 [facility] Lisinopril Lisinopril No 1{table QD Lisinopril 20 mg 20 mg 5-22 t} 20 mg 00:00: 00 Lisinopril Lisinopril No 1{table QD Lisinopril 20 mg 20 mg 5-22 t} 20 mg 00:00: 00 Lisinopril Lisinopril 2017-0 No 1{table QD Lisinopril 20 mg 20 mg 5-22 t} 20 mg 00:00: 00 Lisinopril Lisinopril 0 No 1{table QD Lisinopril 20 mg 20 mg 5-22 t} 20 mg 00:00: 00 Lisinopril Lisinopril 0 No 1{table QD Lisinopril 20 mg 20 mg 5-22 t} 20 mg 00:00: 00 Lisinopril Lisinopril No 1{table QD Lisinopril 20 mg 20 mg 5-22 t} 20 mg 00:00: 00 Lisinopril Lisinopril 0 No 1{table QD Lisinopril 20 mg 20 mg 5-22 t} 20 mg 00:00: 00 Cymbalta Cymbalta Yes Esther 1 capsule Common 5-16 [facility] 00:00: - [facility] 00 [facility] Cymbalta 30 Cymbalta 30 No 1{capsu QD Cymbalta MG MG 5-16 le} 30 MG 00:00: 00 Cymbalta 30 Cymbalta 30 No 1{capsu QD Cymbalta MG MG 5-16 le} 30 MG 00:00: 00 Cymbalta 30 Cymbalta 30 0 No 1{capsu QD Cymbalta MG MG 5-16 le} 30 MG 00:00: 00 Cymbalta 30 Cymbalta 30 No 1{capsu QD Cymbalta MG MG 5-16 le} 30 MG 00:00: 00 Cymbalta 30 Cymbalta 30 No 1{capsu QD Cymbalta MG MG 5-16 le} 30 MG 00:00: 00 Cymbalta 30 Cymbalta 30 No 1{capsu QD Cymbalta MG MG 5-16 le} 30 MG 00:00: 00 Cymbalta 30 Cymbalta 30 0 No 1{capsu QD Cymbalta MG MG 5-16 le} 30 MG 00:00: 00 Sertraline Sertraline 2018-0 Yes Esther 1 tablet Common HCl HCl 4-25 [facility] 00:00: - [facility] 00 [facility] Sertraline Sertraline 0 No 1{table QD Sertraline HCl 100 mg HCl 100 mg 4-25 t} HCl 100 mg 00:00: 00 Sertraline Sertraline No 1{table QD Sertraline HCl 100 mg HCl 100 mg 4-25 t} HCl 100 mg 00:00: 00 Sertraline Sertraline No 1{table QD Sertraline HCl 100 mg HCl 100 mg 4-25 t} HCl 100 mg 00:00: 00 Sertraline Sertraline No 1{table QD Sertraline HCl 100 mg HCl 100 mg 4-25 t} HCl 100 mg 00:00: 00 Sertraline Sertraline No 1{table QD Sertraline HCl 100 mg HCl 100 mg 4-25 t} HCl 100 mg 00:00: 00 Sertraline Sertraline No 1{table QD Sertraline HCl 100 mg HCl 100 mg 4-25 t} HCl 100 mg 00:00: 00 Sertraline Sertraline No 1{table QD Sertraline HCl 100 mg HCl 100 mg 4-25 t} HCl 100 mg 00:00: 00 amLODIPine 2016-0 Yes [facility] (NORVASC) - st 10 mg 00:00: Hospita tablet 00 l amLODIPine 0 Yes [facility] (NORVASC) 07-26 st 10 mg 00:00: Hospita tablet 00 l amLODIPine 0 Yes [facility] (NORVASC) 07-26 st 10 mg 00:00: Hospita tablet 00 l Ursodiol Ursodiol Yes Esther not Common Millender defined [facility] Cymbalta Cymbalta Yes Esther 1 capsule C ommon Millender [facility] Tacrolimus Tacrolimus Yes Esther not Co mmon Millender defined [facility] Losartan Losartan Yes Esther 1 tablet Co mmon Potassium Potassium Millender for high Spirit blood - [facility] pressure [facility] Pantoprazol Pantoprazol Yes Esther 1 tablet Common e Sodium e Sodium Millender Sp [facility] Zoloft Zoloft Yes Esther 1 tablet Common [facility] Zofran Zofran Yes Esther not Common [facility] defined [facility] - [facility] Sumatriptan Sumatriptan Yes Esther 0.5 ml as Common Succinate Succinate Millender needed Spirit [facility] Magnesium Magnesium Yes Esther 1 tablet Common Oxide Oxide Millender as needed Spi rit - [facility] Amlodipine Amlodipine Yes Esther 1 tablet Common Besylate Besylate Millender for high Spirit blood - [facility] pressure [facility] Zofran 4 MG Zofran 4 MG No Zofran 4 MG Duloxetine Duloxetine No 1{capsu QD Duloxetine HCl 60 MG HCl 60 MG le} HCl 60 MG Cymbalta 60 Cymbalta 60 No 1{capsu BID Cymbalta MG MG le} 60 MG Pantoprazol Pantoprazol No 1{table QD Pantoprazo e Sodium 40 e Sodium 40 t} le Sodium MG MG 40 MG Losartan Losartan No QD Losartan Potassium Potassium Potassium 50 MG 50 MG 50 MG Zoloft 100 Zoloft 100 No 1{table QD Zoloft 100 mg mg t} mg Sumatriptan Sumatriptan No .5{ml_a BID Sumatripta Succinate 6 Succinate 6 s_neede n MG/0.5ML MG/0.5ML d} Succinate 6 MG/0.5ML Ursodiol Ursodiol No Ursodiol 300 MG 300 MG 300 MG Metformin Metformin No 1{table BID Metformin HCl 500 MG HCl 500 MG t_with_ HCl 500 MG a_meal} Amlodipine Amlodipine No QD Amlodipine Besylate 10 Besylate 10 Besylate MG MG 10 MG Biotin Biotin No Biotin Ergocalcife Ergocalcife No 1{capsu Ergocalcif rol 1.25 MG rol 1.25 MG le} heavenly 1.25 (13768 UT) (78784 UT) MG (16047 UT) Multi For Multi For No Multi For Her Her Her Tacrolimus Tacrolimus No Tacrolimus 1 MG 1 MG 1 MG Calcium Calcium No Calcium Citrate + Citrate + Citrate + D3 D3 D3 Magnesium Magnesium No 1{table QD Magnesium Oxide 400 Oxide 400 t_as_ne Oxide 400 MG MG eded} MG Zofran 4 MG Zofran 4 MG No Zofran 4 MG Zoloft 100 Zoloft 100 No 1{table QD Zoloft 100 mg mg t} mg Losartan Losartan No QD Losartan Potassium Potassium Potassium 50 MG 50 MG 50 MG Zofran 4 MG Zofran 4 MG No Zofran 4 MG Amlodipine Amlodipine No QD Amlodipine Besylate 10 Besylate 10 Besylate MG MG 10 MG Tacrolimus Tacrolimus No Tacrolimus 1 MG 1 MG 1 MG Ergocalcife Ergocalcife No 1{capsu Ergocalcif rol 1.25 MG rol 1.25 MG le} heavenly 1.25 (51370 UT) (76941 UT) MG (43257 UT) Metformin Metformin No 1{table BID Metformin HCl 500 MG HCl 500 MG t_with_ HCl 500 MG a_meal} Lancets - Lancets - No Lancets - Ursodiol Ursodiol No Ursodiol 300 MG 300 MG 300 MG Calcium Calcium No Calcium Citrate + Citrate + Citrate + D3 D3 D3 Duloxetine Duloxetine No 1{capsu QD Duloxetine HCl 60 MG HCl 60 MG le} HCl 60 MG Pantoprazol Pantoprazol No 1{table QD Pantoprazo e Sodium 40 e Sodium 40 t} le Sodium MG MG 40 MG Cymbalta 60 Cymbalta 60 No 1{capsu BID Cymbalta MG MG le} 60 MG Blood Blood No Blood Glucose Glucose Glucose Monitor Monitor Monitor System System System w/Device w/Device w/Device Biotin Biotin No Biotin Sumatriptan Sumatriptan No .5{ml_a BID Sumatripta Succinate 6 Succinate 6 s_neede n MG/0.5ML MG/0.5ML d} Succinate 6 MG/0.5ML Blood Blood No Blood Glucose Glucose Glucose Test - Test - Test - Multi For Multi For No Multi For Her Her Her Magnesium Magnesium No 1{table QD Magnesium Oxide 400 Oxide 400 t_as_ne Oxide 400 MG MG eded} MG Lancets - Lancets - No Lancets - Zofran 4 MG Zofran 4 MG No Zofran 4 MG Zoloft 100 Zoloft 100 No 1{table QD Zoloft 100 mg mg t} mg Losartan Losartan No QD Losartan Potassium Potassium Potassium 50 MG 50 MG 50 MG Blood Blood No Blood Glucose Glucose Glucose Monitor Monitor Monitor System System System w/Device w/Device w/Device Pantoprazol Pantoprazol No 1{table QD Pantoprazo e Sodium 40 e Sodium 40 t} le Sodium MG MG 40 MG Amlodipine Amlodipine No QD Amlodipine Besylate 10 Besylate 10 Besylate MG MG 10 MG Calcium Calcium No Calcium Citrate + Citrate + Citrate + D3 D3 D3 Magnesium Magnesium No 1{table QD Magnesium Oxide 400 Oxide 400 t_as_ne Oxide 400 MG MG eded} MG Tacrolimus Tacrolimus No Tacrolimus 1 MG 1 MG 1 MG Duloxetine Duloxetine No 1{capsu QD Duloxetine HCl 60 MG HCl 60 MG le} HCl 60 MG Multi For Multi For No Multi For Her Her Her Cymbalta 60 Cymbalta 60 No 1{capsu BID Cymbalta MG MG le} 60 MG Sumatriptan Sumatriptan No .5{ml_a BID Sumatripta Succinate 6 Succinate 6 s_neede n MG/0.5ML MG/0.5ML d} Succinate 6 MG/0.5ML Biotin Biotin No Biotin Metformin Metformin No 1{table BID Metformin HCl 500 MG HCl 500 MG t_with_ HCl 500 MG a_meal} Blood Blood No Blood Glucose Glucose Glucose Test - Test - Test - Ergocalcife Ergocalcife No 1{capsu Ergocalcif rol 1.25 MG rol 1.25 MG le} heavenly 1.25 (48476 UT) (95528 UT) MG (67890 UT) Ursodiol Ursodiol No Ursodiol 300 MG 300 MG 300 MG Lancets - Lancets - No Lancets - Zofran 4 MG Zofran 4 MG No Zofran 4 MG Zoloft 100 Zoloft 100 No 1{table QD Zoloft 100 mg mg t} mg Losartan Losartan No QD Losartan Potassium Potassium Potassium 50 MG 50 MG 50 MG Blood Blood No Blood Glucose Glucose Glucose Monitor Monitor Monitor System System System w/Device w/Device w/Device Pantoprazol Pantoprazol No 1{table QD Pantoprazo e Sodium 40 e Sodium 40 t} le Sodium MG MG 40 MG Amlodipine Amlodipine No QD Amlodipine Besylate 10 Besylate 10 Besylate MG MG 10 MG Calcium Calcium No Calcium Citrate + Citrate + Citrate + D3 D3 D3 Magnesium Magnesium No 1{table QD Magnesium Oxide 400 Oxide 400 t_as_ne Oxide 400 MG MG eded} MG Tacrolimus Tacrolimus No Tacrolimus 1 MG 1 MG 1 MG Duloxetine Duloxetine No 1{capsu QD Duloxetine HCl 60 MG HCl 60 MG le} HCl 60 MG Multi For Multi For No Multi For Her Her Her Cymbalta 60 Cymbalta 60 No 1{capsu BID Cymbalta MG MG le} 60 MG Sumatriptan Sumatriptan No .5{ml_a BID Sumatripta Succinate 6 Succinate 6 s_neede n MG/0.5ML MG/0.5ML d} Succinate 6 MG/0.5ML Biotin Biotin No Biotin Metformin Metformin No 1{table BID Metformin HCl 500 MG HCl 500 MG t_with_ HCl 500 MG a_meal} Blood Blood No Blood Glucose Glucose Glucose Test - Test - Test - Ergocalcife Ergocalcife No 1{capsu Ergocalcif rol 1.25 MG rol 1.25 MG le} heavenly 1.25 (42120 UT) (97706 UT) MG (04932 UT) Ursodiol Ursodiol No Ursodiol 300 MG 300 MG 300 MG Duloxetine Duloxetine No 1{capsu QD Duloxetine HCl 60 MG HCl 60 MG le} HCl 60 MG Calcium Calcium No Calcium Citrate + Citrate + Citrate + D3 D3 D3 Tacrolimus Tacrolimus No Tacrolimus 1 MG 1 MG 1 MG Zofran 4 MG Zofran 4 MG No Zofran 4 MG Pantoprazol Pantoprazol No 1{table QD Pantoprazo e Sodium 40 e Sodium 40 t} le Sodium MG MG 40 MG Multi For Multi For No Multi For Her Her Her Biotin Biotin No Biotin Zoloft 100 Zoloft 100 No 1{table QD Zoloft 100 mg mg t} mg Lancets - Lancets - No Lancets - Blood Blood No Blood Glucose Glucose Glucose Monitor Monitor Monitor System System System w/Device w/Device w/Device Ergocalcife Ergocalcife No 1{capsu Ergocalcif rol 1.25 MG rol 1.25 MG le} heavenly 1.25 (31999 UT) (94074 UT) MG (06920 UT) Magnesium Magnesium No 1{table QD Magnesium Oxide 400 Oxide 400 t_as_ne Oxide 400 MG MG eded} MG Blood Blood No Blood Glucose Glucose Glucose Test - Test - Test - Amlodipine Amlodipine No QD Amlodipine Besylate 10 Besylate 10 Besylate MG MG 10 MG Sumatriptan Sumatriptan No .5{ml_a BID Sumatripta Succinate 6 Succinate 6 s_neede n MG/0.5ML MG/0.5ML d} Succinate 6 MG/0.5ML Ursodiol Ursodiol No Ursodiol 300 MG 300 MG 300 MG Losartan Losartan No QD Losartan Potassium Potassium Potassium 50 MG 50 MG 50 MG Metformin Metformin No 1{table BID Metformin HCl 500 MG HCl 500 MG t_with_ HCl 500 MG a_meal} Cymbalta 60 Cymbalta 60 No 1{capsu BID Cymbalta MG MG le} 60 MG Tacrolimus Tacrolimus No Tacrolimus 1 MG 1 MG 1 MG Magnesium Magnesium No 1{table QD Magnesium Oxide 400 Oxide 400 t_as_ne Oxide 400 MG MG eded} MG Zoloft 100 Zoloft 100 No 1{table QD Zoloft 100 mg mg t} mg Ursodiol Ursodiol No Ursodiol 300 MG 300 MG 300 MG Pantoprazol Pantoprazol No 1{table QD Pantoprazo e Sodium 40 e Sodium 40 t} le Sodium MG MG 40 MG Losartan Losartan No QD Losartan Potassium Potassium Potassium 50 MG 50 MG 50 MG Zofran 4 MG Zofran 4 MG No Zofran 4 MG Amlodipine Amlodipine No QD Amlodipine Besylate 10 Besylate 10 Besylate MG MG 10 MG Cymbalta 60 Cymbalta 60 No 1{capsu BID Cymbalta MG MG le} 60 MG Sumatriptan Sumatriptan No .5{ml_a BID Sumatripta Succinate 6 Succinate 6 s_neede n MG/0.5ML MG/0.5ML d} Succinate 6 MG/0.5ML Duloxetine Duloxetine No 1{capsu QD Duloxetine HCl 60 MG HCl 60 MG le} HCl 60 MG Cymbalta 60 Cymbalta 60 No 1{capsu BID Cymbalta MG MG le} 60 MG Pantoprazol Pantoprazol No 1{table QD Pantoprazo e Sodium 40 e Sodium 40 t} le Sodium MG MG 40 MG Losartan Losartan No QD Losartan Potassium Potassium Potassium 50 MG 50 MG 50 MG Zoloft 100 Zoloft 100 No 1{table QD Zoloft 100 mg mg t} mg Sumatriptan Sumatriptan No .5{ml_a BID Sumatripta Succinate 6 Succinate 6 s_neede n MG/0.5ML MG/0.5ML d} Succinate 6 MG/0.5ML Ursodiol Ursodiol No Ursodiol 300 MG 300 MG 300 MG Metformin Metformin No 1{table BID Metformin HCl 500 MG HCl 500 MG t_with_ HCl 500 MG a_meal} Amlodipine Amlodipine No QD Amlodipine Besylate 10 Besylate 10 Besylate MG MG 10 MG Biotin Biotin No Biotin Ergocalcife Ergocalcife No 1{capsu Ergocalcif rol 1.25 MG rol 1.25 MG le} heavenly 1.25 (65838 UT) (21284 UT) MG (51408 UT) Multi For Multi For No Multi For Her Her Her Tacrolimus Tacrolimus No Tacrolimus 1 MG 1 MG 1 MG Calcium Calcium No Calcium Citrate + Citrate + Citrate + D3 D3 D3 Magnesium Magnesium No 1{table QD Magnesium Oxide 400 Oxide 400 t_as_ne Oxide 400 MG MG eded} MG Immunizations Ordered Immunization Filled Immunization Date Status Commen ts Source Name Name [facility] COVID-19 2020-11-26 Com[facility] COVID-19 2020-11-26 Completed [facility]:00 [facility] COVID-19 2020-11-26 Completed [facility] 00:00:00 [facility] Covid-19 Vaccine 2020-11-26 Completed Samira castillo - Moderna (Spikevax), 00:00:00 Exter nal Mrna-lnp, Francesco Protein, Pf Covid-19 Vaccine 2020-11-26 Completed Samira castillo - Moderna (Spikevax), 00:00:00 Exter nal Mrna-lnp, Francesco Protein, Pf Covid-19 Vaccine 2020-11-26 Completed Samira castillo - Moderna (Spikevax), 00:00:00 Exter nal Mrna-lnp, Francesco Protein, Pf Covid-19 Vaccine 2020-11-26 Completed Samira castillo - Moderna (Spikevax), 00:00:00 Exter nal Mrna-lnp, Francesco Protein, Pf Covid-19 Vaccine 2020-11-26 Completed Samira castillo - Moderna (Spikevax), 00:00:00 Exter nal Mrna-lnp, Francesco Protein, Pf Covid-19 Vaccine 2020-11-26 Completed Samira castillo - Moderna (Spikevax), 00:00:00 Exter nal Mrna-lnp, Francesco Protein, Pf Covid-19 Vaccine 2020-11-26 Completed Samira S eybold - Moderna (Spikevax), 00:00:00 Exter nal Mrna-lnp, Francesco Protein, Pf Covid-19 Vaccine 2020-11-26 Completed Samira obregonbodominic - Moderna (Spikevax), 00:00:00 Exter nal Mrna-lnp, Francesco Protein, Pf Covid-19 Vaccine 2020-11-26 Completed Samira castillo - Moderna (Spikevax), 00:00:00 Exter nal Mrna-lnp, Francesco Protein, Pf Covid-19 Vaccine 2020-11-26 Completed Samira Huber eybold - Moderna (Spikevax), 00:00:00 Exter nal Mrna-lnp, Francesco Protein, Pf Covid-19 Vaccine 2020-11-26 Completed Samira castillo - Moderna (Spikevax), 00:00:00 Exter nal Mrna-lnp, Francesco Protein, Pf Covid-19 Vaccine 2020-11-26 Completed Samira castillo - Moderna (Spikevax), 00:00:00 Exter nal Mrna-lnp, Francesco Protein, Pf Covid-19 Vaccine 2020-11-26 Completed Samira castillo Moderna (Spikevax), 00:00:00 Mrna-lnp, Francesco Protein, Pf Covid-19 Vaccine 2020-11-26 Completed Samira castillo Moderna (Spikevax), 00:00:00 Mrna-lnp, Francesco Protein, MODERNA COVID-19 2020-10-29 Completed [facility] 00[facility]00:00 [facility] MODERNA COVID-19 2020-10-29 Completed [facility] VACCINATION 00:00:00 [facility] MODERNA COVID-19 2020-10-29 Completed [facility]00 [facility] Covid-19 Vaccine 2020-10-29 Completed Samira castillo - Moderna (Spikevax), 00:00:00 Exter nal Mrna-lnp, Francesco Protein, Pf Covid-19 Vaccine 2020-10-29 Completed Samira castillo - Moderna (Spikevax), 00:00:00 Exter nal Mrna-lnp, Francesco Protein, Pf Covid-19 Vaccine 2020-10-29 Completed Samira S eybold - Moderna (Spikevax), 00:00:00 Exter nal Mrna-lnp, Francesco Protein, Pf Covid-19 Vaccine 2020-10-29 Completed Samira castillo - Moderna (Spikevax), 00:00:00 Exter nal Mrna-lnp, Francesco Protein, Pf Covid-19 Vaccine 2020-10-29 Completed Samira Huber ac - Moderna (Spikevax), 00:00:00 Exter nal Mrna-lnp, Francesco Protein, Pf Covid-19 Vaccine 2020-10-29 Completed Samira Huber eybodominic - Moderna (Spikevax), 00:00:00 Exter nal Mrna-lnp, Francesco Protein, Pf Covid-19 Vaccine 2020-10-29 Completed Samira castillo - Moderna (Spikevax), 00:00:00 Exter nal Mrna-lnp, Francesco Protein, Pf Covid-19 Vaccine 2020-10-29 Completed Samira castillo - Moderna (Spikevax), 00:00:00 Exter nal Mrna-lnp, Francesco Protein, Pf Covid-19 Vaccine 2020-10-29 Completed Samira Huber eybodominic - Moderna (Spikevax), 00:00:00 Exter nal Mrna-lnp, Francesco Protein, Pf Covid-19 Vaccine 2020-10-29 Completed Samira Huber eybodominic - Moderna (Spikevax), 00:00:00 Exter nal Mrna-lnp, Francesco Protein, Pf Covid-19 Vaccine 2020-10-29 Completed Samira castillo - Moderna (Spikevax), 00:00:00 Exter nal Mrna-lnp, Francesco Protein, Pf Covid-19 Vaccine 2020-10-29 Completed Samira Huber eybold - Moderna (Spikevax), 00:00:00 Exter nal Mrna-lnp, Francesco Protein, Pf Covid-19 Vaccine 2020-10-29 Completed Samira eybodomiinc Moderna (Spikevax), 00:00:00 Mrna-lnp, Francesco Protein, Pf Covid-19 Vaccine 2020-10-29 Completed Samira castillo Moderna (Spikevax), 00:00:00 Mrna-lnp, Francesco Protein, Pf FLUZONE HIGH DOSE FLUZONE HIGH DOSE 2020-04-16 Completed [facility] - OVER 65 OVER 65 17:04:00 [facility] FLUZONE HIGH DOSE FLUZONE HIGH DOSE 2020-04-16 Completed [facility] - OVER 65 OVER 65 17:04:00 [facility] FLUZONE HIGH DOSE FLUZONE HIGH DOSE 2020-04-16 Completed [facility] - OVER 65 OVER 65 17:04:00 [facility] FLUZONE HIGH DOSE FLUZONE HIGH DOSE 2020-04-16 Completed [facility] - OVER 65 OVER 65 17:04:00 [facility] FLUZONE HIGH DOSE FLUZONE HIGH DOSE 2020-04-16 Completed [facility] - OVER 65 OVER 65 17:04:00 [facility] FLUZONE HIGH DOSE FLUZONE HIGH DOSE 2020-04-16 Completed [facility] - OVER 65 OVER 65 17:04:00 [facility] FLUZONE HIGH DOSE FLUZONE HIGH DOSE 2020-04-16 Completed [facility] - OVER 65 OVER 65 17:04:00 [facility] Influenza Virus 2020-04-16 Completed Samira stylesold - Vaccine, High Dose, 00:00:00 Exter nal Age 65 And Up Influenza Virus 2020-04-16 Completed Samira stylesold - Vaccine, High Dose, 00:00:00 Exter nal Age 65 And Up Influenza Virus 2020-04-16 Completed Samira stylesold - Vaccine, High Dose, 00:00:00 Exter nal Age 65 And Up Influenza Virus 2020-04-16 Completed Samira stylesold - Vaccine, High Dose, 00:00:00 Exter nal Age 65 And Up Influenza Virus 2020-04-16 Completed Samira Murphy ybold - Vaccine, High Dose, 00:00:00 Exter nal Age 65 And Up Influenza Virus 2020-04-16 Completed Samira Murphy ybold - Vaccine, High Dose, 00:00:00 Exter nal Age 65 And Up Influenza Virus 2020-04-16 Completed Samira Murphy ybold Vaccine, High Dose, 00:00:00 Age 65 And Up FLUZONE HIGH DOSE FLUZONE HIGH DOSE 2019-09-12 Completed [facility] - OVER 65 OVER 65 13:59:00 [facility] FLUZONE HIGH DOSE FLUZONE HIGH DOSE 2019-09-12 Completed [facility] - OVER 65 OVER 65 13:59:00 [facility] FLUZONE HIGH DOSE FLUZONE HIGH DOSE 2019-09-12 Completed [facility] - OVER 65 OVER 65 13:59:00 [facility] FLUZONE HIGH DOSE FLUZONE HIGH DOSE 2019-09-12 Completed [facility] - OVER 65 OVER 65 13:59:00 [facility] FLUZONE HIGH DOSE FLUZONE HIGH DOSE 2019-09-12 Completed [facility] - OVER 65 OVER 65 13:59:00 [facility] FLUZONE HIGH DOSE FLUZONE HIGH DOSE 2019-09-12 Completed [facility] - OVER 65 OVER 65 13:59:00 [facility] FLUZONE HIGH DOSE FLUZONE HIGH DOSE 2019-09-12 Completed [facility] - OVER 65 OVER 65 13:59:00 [facility] Prevnar 13 Prevnar 13 2019-09-12 Completed [facility] - -Pneumonia Vaccine -Pneumonia Vaccine 13:58:00 [facility] Prevnar 13 Prevnar 13 2019-09-12 Completed [facility] - -Pneumonia Vaccine -Pneumonia Vaccine 13:58:00 [facility] Prevnar 13 Prevnar 13 2019-09-12 Completed [facility] - -Pneumonia Vaccine -Pneumonia Vaccine 13:58:00 [facility] Prevnar 13 Prevnar 13 2019-09-12 Completed [facility] - -Pneumonia Vaccine -Pneumonia Vaccine 13:58:00 [facility] Prevnar 13 Prevnar 13 2019-09-12 Completed [facility] - -Pneumonia Vaccine -Pneumonia Vaccine 13:58:00 [facility] Prevnar 13 Prevnar 13 2019-09-12 Completed [facility] - -Pneumonia Vaccine -Pneumonia Vaccine 13:58:00 [facility] Prevnar 13 Prevnar 13 2019-09-12 Completed [facility] - -Pneumonia Vaccine -Pneumonia Vaccine 13:58:00 [facility] Prevnar 13 Prevnar 13 2019-09-12 Completed [facility] - -Pneumonia Vaccine -Pneumonia Vaccine 00:00:00 [facility] FLUZONE HIGH DOSE FLUZONE HIGH DOSE 2019-09-12 Completed [facility] - OVER 65 OVER 65 00:00:00 [facility] Influenza Virus 2019-09-12 Completed Samira Se ybold - Vaccine, High Dose, 00:00:00 Exter nal Age 65 And Up Pneumococcal 2019-09-12 Completed Samira Seybo ld - Vaccine, 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 Influenza Virus 2019-09-12 Completed Samira Se ybold - Vaccine, High Dose, 00:00:00 Exter nal Age 65 And Up Pneumococcal 2019-09-12 Completed Samira Seybo ld - Vaccine, 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 Influenza Virus 2019-09-12 Completed Samira Se ybold - Vaccine, High Dose, 00:00:00 Exter nal Age 65 And Up Pneumococcal 2019-09-12 Completed Samira Seybo ld - Vaccine, 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 Influenza Virus 2019-09-12 Completed Samira Se ybold - Vaccine, High Dose, 00:00:00 Exter nal Age 65 And Up Pneumococcal 2019-09-12 Completed Samira Seybo ld - Vaccine, 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 Influenza Virus 2019-09-12 Completed Samira Se ybold - Vaccine, High Dose, 00:00:00 Exter nal Age 65 And Up Pneumococcal 2019-09-12 Completed Samira Seybo ld - Vaccine, 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 Influenza Virus 2019-09-12 Completed Samira Se ybold - Vaccine, High Dose, 00:00:00 Exter nal Age 65 And Up Pneumococcal 2019-09-12 Completed Samira Seybo ld - Vaccine, 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 Influenza Virus 2019-09-12 Completed Samira Se ybold Vaccine, High Dose, 00:00:00 Age 65 And Up Pneumococcal 2019-09-12 Completed Samira Seybo ld Vaccine, Conjugate 00:00:00 FLUCELVAX QUAD PF 2018-07-[address] [facility] FLUCELVAX QUAD PF 2018-07-[address] [facility] FLUCELVAX QUAD PF 2018-07-[address] [facility] Influenza, 2018-07-26 Completed Samira Seybold - Injectable, Mdck, 00:00:00 Externa l Preservative Free, Quadrivalt Influenza, 2018-07-26 Completed Samira Seybold - Injectable, Mdck, 00:00:00 Externa l Preservative Free, Quadrivalt Influenza, 2018-07-26 Completed Samira Murphyybold - Injectable, Mdck, 00:00:00 Externa l Preservative Free, Quadrivalt Influenza, 2018-07-26 Completed Samira Weinsteinold - Injectable, Mdck, 00:00:00 Externa l Preservative Free, Quadrivalt Influenza, 2018-07-26 Completed Samira Murphyybold - Injectable, Mdck, 00:00:00 Externa l Preservative Free, Quadrivalt influenza, 2018-07-26 Completed Samira Murphyybold - Injectable, Mdck, 00:00:00 Externa l Preservative Free, Quadrivalt Influenza, 2018-07-26 Completed Samira Seybold Injectable, Mdck, 00:00:00 Preservative Free, Quadrivalt Vital Signs Vital Name Observation Time Observation Value Comments Source Systolic blood 2023-03-16 13:50:00 122 mm[Hg] Samira Brown - pressure External Diastolic blood 2023-03-16 13:50:00 82 mm[Hg] Kristina Brown - pressure External Heart rate 2023-03-16 13:50:00 85 /min Samira castillo - External Body temperature 2023-03-16 13:50:00 35.56 Teresa Martina Brown - External Respiratory rate 2023-03-16 13:50:00 14 /min Martina Brown - External Body height 2023-03-16 13:50:00 157.5 cm Samira castillo - External Body weight 2023-03-16 13:50:00 48.081 kg Samira castillo - External BMI 2023-03-16 13:50:00 19.39 kg/m2 Samira castillo - External Oxygen saturation in 2023-03-16 13:50:00 95 /min Samira Brown - Arterial blood by External Pulse oximetry Systolic blood 2023-03-01 12:47:00 136 mm[Hg] Samira Brown - pressure External Diastolic blood 2023-03-01 12:47:00 88 mm[Hg] Kristina gaitan Seybold - pressure External Heart rate 2023-03-01 12:47:00 85 /min Samira obregonbodominic - External Body temperature 2023-03-01 12:47:00 35.28 Teresa Martina ey Seybold - External Respiratory rate 2023-03-01 12:47:00 20 /min Martina ey Seybold - External Body height 2023-03-01 12:47:00 157.5 cm Samira S eybold - External Body weight 2023-03-01 12:47:00 47.809 kg Samira S eybold - External BMI 2023-03-01 12:47:00 19.28 kg/m2 Samira S eybold - External Oxygen saturation in 2023-03-01 12:47:00 96 /min Samira Seybold - Arterial blood by External Pulse oximetry Systolic blood 2023-02-16 12:58:00 114 mm[Hg] Samira Seybold - pressure External Diastolic blood 2023-02-16 12:58:00 76 mm[Hg] Kristina y Seybold - pressure External Heart rate 2023-02-16 12:58:00 66 /min Samira S eybold - External Respiratory rate 2023-02-16 12:58:00 16 /min Martina ey Seybold - External Body height 2023-02-16 12:58:00 162.6 cm Samira S eybold - External Body weight 2023-02-16 12:58:00 47.991 kg Samira S eybold - External BMI 2023-02-16 12:58:00 18.16 kg/m2 Samira S eybold - External Systolic blood 2023-01-31 13:23:00 150 mm[Hg] Samira Seybold - pressure External Diastolic blood 2023-01-31 13:23:00 88 mm[Hg] aMnnyse y Seybold - pressure External Heart rate 2023-01-31 13:23:00 91 /min Samira S eybold - External Body temperature 2023-01-31 13:23:00 35.39 Teresa Martina ey Seybold - External Respiratory rate 2023-01-31 13:23:00 20 /min Martina ey Seybold - External Body height 2023-01-31 13:23:00 162.6 cm Samira S eybold - External Body weight 2023-01-31 13:23:00 47.9 kg Samira S eybold - External BMI 2023-01-31 13:23:00 18.13 kg/m2 Samira S eybold - External Oxygen saturation in 2023-01-31 13:23:00 97 /min Samira Seybold - Arterial blood by External Pulse oximetry Systolic blood 2023-01-03 13:57:00 150 mm[Hg] Samira Seybold - pressure External Diastolic blood 2023-01-03 13:57:00 94 mm[Hg] Kelse y Seybold - pressure External Heart rate 2023-01-03 13:57:00 93 /min Samira S eybold - External Body temperature 2023-01-03 13:57:00 35.5 Teresa Martina ey Seybold - External Respiratory rate 2023-01-03 13:57:00 15 /min Martina ey Seybold - External Body height 2023-01-03 13:57:00 157.5 cm Samira S eybold - External Body weight 2023-01-03 13:57:00 50.349 kg Samira S eybold - External BMI 2023-01-03 13:57:00 20.30 kg/m2 Samira S eybold - External Systolic blood 2022-12-06 14:43:00 142 mm[Hg] Samira Seybold - pressure External Diastolic blood 2022-12-06 14:43:00 88 mm[Hg] Mannyse y Seybold - pressure External Heart rate 2022-12-06 14:43:00 96 /min Samira S eybold - External Body temperature 2022-12-06 14:43:00 35.56 Teresa Martina ey Seybold - External Respiratory rate 2022-12-06 14:43:00 16 /min Martina ey Seybold - External Body height 2022-12-06 14:43:00 157.5 cm Samira S eybold - External Body weight 2022-12-06 14:43:00 53.343 kg Samira S eybold - External BMI 2022-12-06 14:43:00 21.51 kg/m2 Samira S eybold - External Oxygen saturation in 2022-12-06 14:43:00 96 /min Samira Seybold - Arterial blood by External Pulse oximetry Systolic blood 2021-09-02 15:08:00 138 mm[Hg] Samira Murphyybdiann pressure Diastolic blood 2021-09-02 15:08:00 84 mm[Hg] Kristina y Seybold pressure Heart rate 2021-09-02 15:08:00 103 /min Samira castillo Body temperature 2021-09-02 15:08:00 36.39 Teresa Martina Brown Respiratory rate 2021-09-02 15:08:00 16 /min Martina Brown Body height 2021-09-02 15:08:00 160 cm Samira castillo Body weight 2021-09-02 15:08:00 53.524 kg Samira castillo BMI 2021-09-02 15:08:00 20.90 kg/m2 Samira castillo height 2020-07-02 10:00:00 63.00 [in_i] [facility] weight 2020-07-02 10:00:00 110.4 [lb_av] [facility] temperature 2020-07-02 10:00:00 98.1 [degF] [facility] bmi 2020-07-02 10:00:00 19.55 kg/m2 [facility] oximetry 2020-07-02 10:00:00 97 % [facility] respiratory rate 2020-07-02 10:00:00 18 /min [facility] blood pressure 2020-07-02 10:00:00 126 mm[Hg] [facility] - systolic [facility] blood pressure 2020-07-02 10:00:00 79 mm[Hg] Common [facility] diastolic [facility] height 2020-06-12 10:20:00 63.00 [in_i] [facility] weight 2020-06-12 10:20:00 110.0 [lb_av] [facility] temperature 2020-06-12 10:20:00 98.2 [degF] [facility] bmi 2020-06-12 10:20:00 19.48 kg/m2 [facility] oximetry 2020-06-12 10:20:00 96 % [facility] respiratory rate 2020-06-12 10:20:00 18 /min [facility] on [facility] blood pressure 2020-06-12 10:20:00 124 mm[Hg] [facility] - systolic [facility] blood pressure 2020-06-12 10:20:00 71 mm[Hg] Common [facility] - diastolic [facility] height 2020-04-16 15:20:00 63.00 [in_i] [facility] weight 2020-04-16 15:20:00 112.2 [lb_av] [facility] temperature 2020-04-16 15:20:00 96.8 [degF] [facility] bmi 2020-04-16 15:20:00 19.87 kg/m2 [facility] oximetry 2020-04-16 15:20:00 95 % [facility] respiratory rate 2020-04-16 15:20:00 16 /min [facility] on [facility] blood pressure 2020-04-16 15:20:00 168 mm[Hg] [facility] [place] [facility] blood pressure 2020-04-16 15:20:00 95 mm[Hg] [facility] diastolic [facility] Body height 2022-12-22 15:30:00 158.5 cm [facility] Body weight 2022-12-22 15:30:00 50.259 kg [facility] BMI 2022-12-22 15:30:00 20.01 kg/m2 [facility] Procedures Procedure Date / Time Performing Clinician Source Performed EXTERNAL IMAGING 2023-03-16 16:35:00 Nata Carey old - External BONE DENSITY 2022-12-22 15:30:00 Hallie Clemons XR CHEST 2 VW 2022-12-22 15:12:00 Hallie Clemons US ABDOMEN COMPLETE 2022-12-22 [facility]12[facility]22 [facility] HY[facility]OXY LEVEL 2022-12-22 11:12:00 Hallie Clemons [facility] GGT 2022-12-22 11:12:00 Hallie Clemons [facility] [place] THYROID STIMULATING 2022-12-22 [facility] [place] PHOSPHORUS LEVEL 2022-12-22 11:12:00 Hallie Clemons [facility] [place] MAGNESIUM LEVEL 2022-12-22 11:12:00 Hallie Clemons [facility] LIPID PANEL 2022-12-22 11:12:00 Hallie Clemons [facility] COMPREHENSIVE METABOLIC 2022-12-22 11:12:00 Hallie Clemons [facility] PANEL [place] HEMOGLOBIN A1C 2022-12-22 11:12:00 Hallie Clemons [facility] CBC WITH PLATELET AND 2022-12-22 11:12:00 Hallie Clemons [facility] DIFFERENTIAL [place] PROTHROMBIN TIME WITH INR 2022-12-22 11:12:00 Hallie Clemons [facility] CYTOMEGALOVIRUS BY PCR 2022-12-22 [facility]:12[facility]BUSE 2022-12-22 11:12:00 Hallie Clemons [facility] SCREEN [place] PHOSPHATIDYLETHANOL, BLOOD 2022-12-22 11:12:00 Hallie Clemons [facility] [id number] TACROLIMUS LEVEL, 2022-12-22 11:12:00 Hallie Clemons [facility] RANDOM [place] HEPATITIS C VIRUS (HCV), 2022-12-22 11:12:00 Hallie Clemons [facility] QUANTITATIVE PCR Tita ESTIMATED GFR 2022-12-22 11:12:00 Hallie Clemons [facility] DONOR SPECIFIC ANTIBODY 2022-12-22 11:12:00 Hallie Clemons [facility] QUANTAFLO 2022-12-06 16:25:43 Nata Carey ld - External Plan of Care Planned Activity Planned Date Details Comments Source Future Scheduled 2023-03-16 Screening for [facility] Test 09:09:01 malignant neoplasm of colon (procedure) [code = 747618688] Future Scheduled 2023-03-16 Screening for [facility] Test 09:09:01 malignant neoplasm of colon (procedure) [code = 959071297] Future Scheduled 2023-03-16 Screening for [facility] Test 09:09:01 malignant neoplasm of colon (procedure) [code = 068954952] Future Scheduled 2023-03-16 SHINGLES VACCINES (1 Met [facility] Test 09:09:01 of 2) [code = SHINGLES VACCINES (1 of 2)] Future Scheduled 2023-03-16 BREAST CANCER [facility] Test 09:09:01 SCREENING [code = BREAST CANCER SCREENING] Future Scheduled 2023-03-16 Screening for [facility] Test 09:09:01 malignant neoplasm of colon (procedure) [code = [id number]] Future Scheduled 2023-03-16 Screening for [facility] Test 09:09:01 malignant neoplasm of colon (procedure) [code = [id number]] Future Scheduled 2023-03-16 HEPATITIS B VACCINES Met [facility] Test 09:09:01 (1 of 3 - Risk 3-dose series) [code = HEPATITIS B VACCINES (1 of 3 - Risk 3-dose series)] Future Scheduled 2023-03-16 65+ PNEUMOCOCCAL [facility] Test 09:09:01 VACCINE (2 - PPSV23 if available, else PCV20) [code = 65+ PNEUMOCOCCAL VACCINE (2 - PPSV23 if available, else PCV20)] Future Scheduled 2023-03-16 COVID-19 VACCINE (4 - [facility] Test 09:09:01 Booster for Moderna series) [code = COVID-19 VACCINE (4 - Booster for Moderna series)] Future Scheduled 2023-03-16 INFLUENZA VACCINE [facility] Test 09:09:01 [code = INFLUENZA VACCINE] Future Scheduled 2022-10-28 SHINGLES VACCINES (1 Met [facility] Test 07:39:52 of 2) [code = SHINGLES VACCINES (1 of 2)] Future Scheduled 2022-10-28 BREAST CANCER [facility] Test 07:39:52 SCREENING [code = BREAST CANCER SCREENING] Future Scheduled 2022-10-28 COLONOSCOPY SCREENING [facility] Test 07:39:52 [code = COLONOSCOPY SCREENING] Future Scheduled 2022-10-28 HEPATITIS B VACCINES Met [facility] Test 07:39:52 (1 of 3 - Risk 3-dose series) [code = HEPATITIS B VACCINES (1 of 3 - Risk 3-dose series)] Future Scheduled 2022-10-28 65+ PNEUMOCOCCAL [facility] Test 07:39:52 VACCINE (2 - PPSV23 if available, else PCV20) [code = 65+ PNEUMOCOCCAL VACCINE (2 - PPSV23 if available, else PCV20)] Future Scheduled 2022-10-28 COVID-19 VACCINE (3 - [facility] Test 07:39:52 Moderna risk series) [code = COVID-19 VACCINE (3 - Moderna risk series)] Future Scheduled 2022-10-28 INFLUENZA VACCINE [facility] Test 07:39:52 [code = INFLUENZA VACCINE] Future Scheduled 2022-08-19 SHINGLES VACCINES (1 Met [facility] Test 04:01:10 of 2) [code = SHINGLES VACCINES (1 of 2)] Future Scheduled 2022-08-19 BREAST CANCER [facility] Test 04:01:10 SCREENING [code = BREAST CANCER SCREENING] Future Scheduled 2022-08-19 COLONOSCOPY SCREENING [facility] Test 04:01:10 [code = COLONOSCOPY SCREENING] Future Scheduled 2022-08-19 HEPATITIS B VACCINES [facility] Test 04:01:10 (1 of 3 - Risk 3-dose series) [code = HEPATITIS B VACCINES (1 of 3 - Risk 3-dose series)] Future Scheduled 2022-08-19 65+ [facility]AL [facility] Test 04:01:10 VACCINE (2 - PPSV23 if available, else PCV20) [code = 65+ PNEUMOCOCCAL VACCINE (2 - PPSV23 if available, else PCV20)] Future Scheduled 2022-08-19 COVID-19 VACCINE (3 - [facility] Test 04:01:10 Moderna risk series) [code = COVID-19 VACCINE (3 - Moderna risk series)] Future Scheduled 2022-08-19 INFLUENZA VACCINE [facility] Test 04:01:10 [code = INFLUENZA VACCINE] Encounters Start End Encounter Admission Attending Care Care Encounter Source Date/Time Date/Time Type Type Clinicians Facility Department ID 2021-08-19 [facility] [id number] Common 13:00:15 [id number] [facility] 2021-08-19 Outpatient STLMLC [facility] [id number] Common 12:57:05 [id number] [facility] 2021-08-19 Outpatient Bisi, STLMLC [facility] [id number] Common 12:11:05 Alexa [id number] [facility] 2021-08-19 Outpatient Bisi, [facility] [id number] Common 12:06:02 Alexa [id number] [facility] 2021-08-19 Outpatient [facility] [id number] Common 12:05:13 [id number] [facility] 2021-08-19 Outpatient Millender, [facility] [id number] Common 11:48:14 Esther [id number] [facility] 2021-08-19 Outpatient Charbelender, [facility] [id number] Common 11:08:05 Esther [id number] [facility] 2023-03-16 2023-03-16 Outpatient LAB90 SAMIRA HOGAN [id number] Samira 09:50:00 09:50:00 Brayan nickerson 2023-03-16 2023-03-16 Outpatient SAMIRA CAREY [id number] Samira 09:00:00 09:00:00 NATA nickerson 2023-03-16 2023-03-16 Outpatient SAMIRA REEVES [id number] Samira 00:00:00 00:00:00 SHEMAR nickerson 2023-03-11 2023-03-11 Keya Gandhi2.840.1 [id number] 2100 [id number] Methodi 00:00:00 00:00:00 Only Hallie 13223.1.[address] [facility] 3.430.2.7 Hospi ta .3.010005 l .8 2023-03-11 2023-03-11 Keya Gandhi2.840.1 [id number] 2099 [id number] Methodi 00:00:00 00:00:00 Only Hallie 22470.1.[address] [facility] 3.430.2.7 Hospi ta .3.217440 l .8 2023-03-08 2023-03-08 Outpatient SAMIRA CAREY [id number] Samira 00:00:00 00:00:00 NATA Seybol d 2023-03-05 2023-03-05 Refbella Garvey, 1.2.840.1 [id number] 2099 [id number] Methodi 00:00:00 00:00:00 Wilfredo Handy 40835.1.1 362 s t 3.430.2.7 Hospit a .3.083334 l .8 2023-03-04 2023-03-04 Brissa Clemons, 1.2.840.1 [id number] 2099 [id number] Methodi 00:00:00 00:00:00 Only Hallie 21035.1.1 605 [facility] 3.430.2.7 Hospi ta .3.742257 l .8 2023-03-02 2023-03-02 Outpatient AURELIO, SAMIRA HOGAN [id number] Samira 00:00:00 00:00:00 NATA Seybol d 2023-03-01 2023-03-01 Outpatient LAB90 SAMIRA HOGAN [id number] Samira 08:45:00 08:45:00 Seybol d 2023-03-01 2023-03-01 Outpatient SAMIRA CAREY [id number] Samira 08:00:00 08:00:00 NATA Seybol d 2023-02-28 2023-02-28 Outpatient SAMIRA CAREY [id number] Samira 00:00:00 00:00:00 NATA Seybol d 2023-02-25 2023-02-25 Outpatient SAMIRA CAREY [id number] Samira 00:00:00 00:00:00 NATA Seybol d 2023-02-25 2023-02-25 Brissa Clemons, 1.2.840.1 [id number] 2099 [id number] Methodi 00:00:00 00:00:00 Only Hallie 97741.1.[address] [place] 3.430.2.7 Hospi ta .3.098304 l .8 2023-02-18 2023-02-18 Brissa Clemons, 1.2.840.1 [id number] 2099 [id number] Methodi 00:00:00 00:00:00 Only Hallie 92717.1.[address] [place] 3.430.2.7 Hospi ta .3.054285 l .8 2023-02-17 2023-02-17 Outpatient SAMIRA CAREY [id number] Samira 00:00:00 00:00:00 NATA Seybol d 2023-02-16 2023-02-16 Outpatient SAMIRA CAREY [id number] Samira 08:00:00 08:00:00 NATA Seybol d 2023-02-11 2023-02-11 Brissa Clemons 1.2.840.1 [id number] 2099 [id number] Methodi 00:00:00 00:00:00 Only Hallie 32427.1.[address] [place] 3.430.2.7 Hospi ta .3.323706 l .8 2023-02-08 2023-02-08 Outpatient SAMIRA CAREY [id number] Samira 00:00:00 00:00:00 NATA Seybol d 2023-02-04 2023-02-04 Brissa Clemons 1.2.840.1 [id number] 2099 [id number] Methodi 00:00:00 00:00:00 Only Hallie 79344.1.[address] [place] 3.430.2.7 Hospi ta .3.425979 l .8 2023-01-31 2023-01-31 Outpatient SAMIRA CAREY [id number] Samira 09:00:00 09:00:00 NATA Seybol d 2023-01-31 2023-01-31 Brissa Clemons 1.2.840.1 [id number] 2099 [id number] Methodi 00:00:00 00:00:00 Only Hallie 99777.1.[address] [place] 3.430.2.7 Hospi ta .3.945440 l .8 2023-01-28 2023-01-28 Orders Deonte, 1.2.840.1 [id number] Methodi 00:00:00 00:00:00 Only Hallie 44352.1.[address] [place] 3.430.2.7 Hospi ta .3.969637 l .8 2023-01-26 2023-01-26 SAMIRA Longoria [id number] Samira 00:00:00 00:00:00 NATA nickerson 2023-01-21 2023-01-21 Orders Deonte, 1.2.840.1 [id number] 2099 [id number] Methodi 00:00:00 00:00:00 Only Hallie 70465.1.[address] [place] 3.430.2.7 Hospi ta .3.946015 l .8 2023-01-17 2023-01-17 Orders Deonte, 1.2.840.1 [id number] 2099 022013 Methodi 00:00:00 00:00:00 Only Hallie 86648.1.[address] [place] 3.430.2.7 Hospi ta .3.704861 l .8 2023-01-13 2023-01-13 Orders Deonte, 1.2.840.1 [id number] 2099 531329 Methodi 00:00:00 00:00:00 Only Hallie 59853.1.[address] [place] 3.430.2.7 Hospi ta .3.709112 l .8 2023-01-13 2023-01-13 Orders Deonte, 1.2.840.1 [id number] 2099 [id number] Methodi 00:00:00 00:00:00 Only Hallie 20511.1.[address] [place] 3.430.2.7 Hospi ta .3.440684 l .8 2023-01-11 2023-01-11 Orders Deonte, 1.2.840.1 [id number] 2100 553385 Methodi 00:00:00 00:00:00 Only Hallie 53696.1.[address] [place] 3.430.2.7 Hospi ta .3.176268 l .8 2022-12-28 2023-01-05 Transplant Ankit Man 1.2.840.1 104 [id number] Methodi 09:00:00 20:58:50 Telemedici Hallie Clemons 54279.1.[address] ne 3.430.2.7 Hospit a .3.102581 l .8 2023-01-03 2023-01-03 Outpatient SAMIRA CAREY [id number] Samira 09:00:00 09:00:00 ANTA Seybol liya 2023-01-03 2023-01-03 Outpatient SAMIRA CAREY [id number] Samira 00:00:00 00:00:00 NATA Seybol liya 2023-01-01 2023-01-01 Outpatient SAMIRA CAREY [id number] Samira 00:00:00 00:00:00 NATA Seybol liya 2022-12-29 2022-12-29 Telephone Alan 1.2.840.1 [id number] 2 [id number] Methodi 00:00:00 00:00:[address] 3.430.2.7 Hospit a .3.720680 l .8 2022-12-28 2022-12-28 [facility] [id number] Kemp 00:00:00 00:00:00 ANKIT [address] 2022-12-28 2022-12-28 Telephone Alan 1.2.840.1 [id number] 2 [id number] Methodi 00:00:00 00:00:[address] 3.430.2.7 Hospit a .3.936792 l .8 2022-12-28 2022-12-28 Travel 1.2.840.1 1.2.817.268 1683 954982 Methodi 00:00:00 00:00:[address] 3.430.2.7 0.2.7.3.698 Ho spita .3.909327 084.8 l .8 2022-12-22 2022-12-22 [facility] Wilfredo Ole 1.2.840.1 10 [id number] Methodi 09:14:15 23:59:00 Encounter ElvaMerlin 39941.1.[address] 3.430.2.7 Hospit a .3.627817 l .8 2022-12-22 2022-12-22 [facility] 1.2.840.1 [id number] 21 [id number] Methodi 09:14:00 09:14:00 Encounter Merlin Edgar 04562.1.[address] 3.430.2.7 Hospit a .3.572425 l .8 2022-12-22 2022-12-22 [facility] Wilfredo Ole 1.2.840.1 10 [id number] Methodi 09:13:44 09:13:44 Encounter Merlin Edgar 97826.1.[address] 3.430.2.7 Hospit a .3.897069 l .8 2022-12-22 2022-12-22 [facility] Wilfredo Ole 1.2.840.1 10 [id number] Methodi 07:49:58 09:12:00 Encounter Merlin Edgar 67419.1.[address] 3.430.2.7 Hospit a .3.095424 l .8 2022-12-22 2022-12-22 [facility] Wilfredo Ole 1.2.840.1 10 [id number] Methodi 07:45:00 07:48:00 Encounter Merlin Edgar 22877.1.[address] 3.430.2.7 Hospit a .3.837537 l .8 2022-12-22 2022-12-22 Outpatient ELVA [facility] [id number] Kemp 00:00:00 00:00:00 MERLIN [address] 2022-12-22 2022-12-22 [id number] Kemp 00:00:00 00:00:00 MERLIN [address] 2022-12-22 2022-12-22 Outpatient ANKOMA-SEY, [facility] [id number] Kemp 00:00:00 00:00:00 MERLIN [address] 2022-12-22 2022-12-22 Outpatient GALATI, [facility] [id number] Kemp 00:00:00 00:00:00 ANKIT [address] 2022-12-22 2022-12-22 Outpatient ANKOMA-SEY, [facility] [id number] Kemp 00:00:00 00:00:00 MERLIN [address] 2022-12-22 2022-12-22 Outpatient NATHANOMA-SEY, [facility] [id number] Kemp 00:00:00 00:00:00 MERLIN [address] 2022-12-22 2022-12-22 Travel 1.2.840.1 1.2.077.625 4891 [id number] Methodi 00:00:00 00:00:[address] 3.430.2.7 0.2.7.3.698 Ho spita .3.810515 084.8 l .8 2022-12-21 2022-12-21 Travel 1.2.840.1 1.2.772.786 5909 977522 Methodi 00:00:00 00:00:[address] 3.430.2.7 0.2.7.3.698 Ho spita .3.101498 084.8 l .8 2022-12-18 2022-12-18 Outpatient HUNDL, SAMIRA HOGAN [id number] Samira 00:00:00 00:00:00 NATA Seybol d 2022-12-09 2022-12-09 Outpatient LAB90 SAMIRA HOGAN [id number] Samira 08:10:00 08:10:00 Seybol d 2022-12-06 2022-12-06 Outpatient LAB90 SAMIRA HOGAN [id number] Samira 11:15:00 11:15:00 Seybol d 2022-12-06 2022-12-06 Outpatient AURELIO SAMIRA HOGAN [id number] Samira 10:00:00 10:00:00 NATA Seybol d 2022-12-06 2022-12-06 Outpatient AURELIO SAMIRA HOGAN [id number] Samira 00:00:00 00:00:00 NATA Seybol d 2022-11-03 2022-11-03 Outpatient AURELIO SAMIRA HOGAN [id number] Samira 00:00:00 00:00:00 NATA Seybol d 2022-10-22 2022-10-22 Telephone Sarkar, 1.2.840.1 [id number] 2100 [id number] Methodi 00:00:00 00:00:[address] 3.430.2.7 Hospit a .3.192268 l .8 2022-10-22 2022-10-22 Telephone Sarkar, 1.2.840.1 [id number] 2100 [address]87986 Methodi 00:00:00 00:00:[address] 3.430.2.7 Hospit a .3.621860 l .8 2022-10-08 2022-10-08 Outpatient AURELIO SAMIRA HOGAN [id number] Samira 00:00:00 00:00:00 NATA Seybol d 2022-10-01 2022-10-01 Outpatient PREZAS, SAMIRA HOGAN [id number] Samira 00:00:00 00:00:00 SHEMAR Seybol d 2022-09-25 2022-09-25 Outpatient SAMIRA CAREY [id number] Samira 00:00:00 00:00:00 NATA Seybol d 2022-09-18 2022-09-18 Outpatient SAMIRA CAREY [id number] Samira 00:00:00 00:00:00 NATA Seybol d 2022-09-17 2022-09-17 Outpatient SAMIRA CAREY [id number] Samira 00:00:00 00:00:00 NATA Seybol d 2022-09-13 2022-09-13 Brissa Clemons 1.2.840.1 [id number] 2099 [id number] Methodi 00:00:00 00:00:00 Only Hallie 43484.1.[address] [place] 3.430.2.7 Hospi ta .3.593795 l .8 2022-09-13 2022-09-13 Orders Deonte, 1.2.840.1 [id number] Methodi 00:00:00 00:00:00 Only Hallie 83260.1.[address] [place] 3.430.2.7 Hospi ta .3.337320 l .8 2022-07-07 2022-07-07 Travel 1.2.840.1 1.2.813.098 7957 [id number] Methodi 00:00:00 00:00:[address] 3.430.2.7 0.2.7.3.698 Ho spita .3.688374 084.8 l .8 2022-07-07 2022-07-07 Travel 1.2.840.1 1.2.546.167 2719 161316 Methodi 00:00:00 00:00:[address] 3.430.2.7 0.2.7.3.698 Ho spita .3.673987 084.8 l .8 2022-07-02 2022-07-02 Outpatient SAMIRA CAREY [id number] Samira 00:00:00 00:00:00 NATA Seybol d 2022-06-30 2022-06-30 Outpatient SAMIRA CAREY [id number] Samira 00:00:00 00:00:00 NATA Seybol d 2022-06-09 2022-06-09 Outpatient SAMIRA CAREY [id number] Samira 00:00:00 00:00:00 NATA Seybol d 2022-05-31 2022-05-31 Orders Saharia, 1.2.840.1 [id number] 77614 Methodi 00:00:00 00:00:00 Only Travis 67260.1.[address] 3.430.2.7 Hospit a .3.571619 l .8 2022-05-31 2022-05-31 Orders Saharia, 1.2.840.1 [id number] 76203 43809 Methodi 00:00:00 00:00:00 Only Travis 27997.1.[address] 3.430.2.7 Hospit a .3.398490 l .8 2022-05-28 2022-05-28 Outpatient SAMIRA CAREY [id number] Samira 00:00:00 00:00:00 NATA Murphyybol d 2022-05-27 2022-05-27 Telephone Phillips, 1.2.840.1 [id number] 2 [id number] Methodi 00:00:00 00:00:[address] 3.430.2.7 Hospit a .3.942706 l .8 2022-05-27 2022-05-27 Telephone Phillips, 1.2.840.1 [id number] 2 [id number] Methodi 00:00:00 00:00:[address] 3.430.2.7 Hospit a .3.504274 l .8 2022-05-21 2022-05-21 Telephone Phillips, 1.2.840.1 [id number] 2 [id number] Methodi 00:00:00 00:00:[address] 3.430.2.7 Hospit a .3.870140 l .8 2022-05-21 2022-05-21 Telephone Phillips, 1.2.840.1 [id number] 2 [id number] Methodi 00:00:00 00:00:[address] 3.430.2.7 Hospit a .3.526106 l .8 2022-05-18 2022-05-18 Outpatient SAMIRA CAREY [id number] Samira 00:00:00 00:00:00 NATA Murphyybol liya 2022-05-182022-05-18 Telephone Leesaria, 1.2.840.1 [id number] Methodi 00:00:00 00:00:[address] 3.430.2.7 Hospit a .3.868740 l .8 2022-05-18 2022-05-18 Telephone Leesaria, 1.2.840.1 [id number] 751 [id number] Methodi 00:00:00 00:00:[address] 3.430.2.7 Hospit a .3.310406 l .8 2022-05-14 2022-05-14 Refill Mare, 1.2.840.1 [id number] 2099 405073 Methodi 00:00:00 00:00:00 Rafik Ole 80109.1.1 170 [address] t 3.430.2.7 Hospit a .3.665752 l .8 2022-05-14 2022-05-14 Refill Mare, 1.2.840.1 [id number] 2100 485581 Methodi 00:00:00 00:00:00 Rafik Ole 41452.1.1 170 s t 3.430.2.7 Hospit a .3.806663 l .8 2022-04-19 2022-04-19 Orders Turner, 1.2.840.1 [id number] 2099 [id number] Methodi 00:00:00 00:00:00 Only Melony 60253.1.[address] 3.430.2.7 Hospit a .3.140310 l .8 2022-04-19 2022-04-19 Orders Turner, 1.2.840.1 [id number] 2099 498438 Methodi 00:00:00 00:00:00 Only Melony 04488.1.[address] 3.430.2.7 Hospit a .3.299122 l .8 2022-04-15 2022-04-15 Telephone Sarkar, 1.2.840.1 [id number] Methodi 00:00:00 00:00:[address] 3.430.2.7 Hospit a .3.764825 l .8 2022-04-15 2022-04-15 Telephone Mello, 1.2.840.1 [id number] 2100 [id number] Methodi 00:00:00 00:00:[address] 3.430.2.7 Hospit a .3.210048 l .8 2022-01-12 2022-01-12 Refill Samuel, 1.2.840.1 [id number] [id number] 0564 Methodi 00:00:00 00:00:[address] 3.430.2.7 Hospit a .3.364218 l .8 2021-11-30 2021-11-30 Outpatient SAMIRA CAREY [id number] Samira 09:00:00 09:00:00 NATA Seybol d 2021-10-27 2021-10-27 Outpatient SAMIRA CAREY [id number] Samira 00:00:00 00:00:00 NATA Seybol d 2021-10-27 2021-10-27 Telephone Abbie, 1.2.840.1 [id number] 21 [id number] Methodi 00:00:00 00:00:[address] 3.430.2.7 Hospit a .3.542964 l .8 2021-10-10 2021-10-10 Outpatient SAMIRA LOTT [id number] Samira 00:00:00 00:00:00 ANIL Seybol d 2021-09-14 2021-09-14 Outpatient SAMIRA LOTT [id number] Samira 00:00:00 00:00:00 ANIL Seybol d 2021-09-11 2021-09-11 Outpatient SAMIRA CAREY [id number] Samira 00:00:00 00:00:00 NATA Seybol d 2021-09-10 2021-09-10 Outpatient SAMIRA LOTT [id number] Samira 00:00:00 00:00:00 ANIL Seybol d 2021-09-09 2021-09-09 Outpatient OBDULIAMoriah SAMIRA HOGAN [id number] Samira 00:00:00 00:00:00 NATA Seybol d 2021-09-09 2021-09-09 Outpatient OBDULIAMoriah SAMIRA HOGAN [id number] Samira 00:00:00 00:00:00 NATA Seybol d 2021-09-02 2021-09-02 Outpatient LAB90 SAMIRA HOGAN [id number] Samira 10:15:00 10:15:00 Seybol d 2021-09-02 2021-09-02 Office Jose Carey 1.2.840.114 [id number] Samira 09:15:00 09:45:00 Visit Nata Kevin 350.1.13.13 Se mendy 1.2.7.2.686 912.2269408 0 2021-09-02 2021-09-02 Outpatient OBDULIAMoriah SAMIRA HOGAN [id number] Samira 00:00:00 00:00:00 NATA Seybol d 2021-09-02 2021-09-02 Telephone Mare, 1.2.840.1 [id number] Methodi 00:00:00 00:00:00 Wilfredo Handy 42701.1.1 073 s t 3.430.2.7 Hospit a .3.340619 l .8 2021-08-24 2021-08-24 Outpatient SAMIRA LOTT [id number] Samira 00:00:00 00:00:00 ANIL Seybol d 2021-08-22 2021-08-22 Outpatient SAMIRA LOTT [id number] Samira 00:00:00 00:00:00 ANIL Seybol d 2021-08-13 2021-08-13 Outpatient SAMIRA LOTT [id number] Samira 00:00:00 00:00:00 ANIL Seybol d 2021-08-08 2021-08-08 Outpatient SAMIRA LOTT [id number] Samira 00:00:00 00:00:00 ANIL Seybol d 2021-07-11 2021-07-11 Outpatient SAMIRA LOTT [id number] Samira 00:00:00 00:00:00 ANIL Seybol d 2021-07-04 2021-07-04 Outpatient SAMIRA LOTT [id number] Samira 00:00:00 00:00:00 ANIL Seybol d 2021-05-13 2021-05-13 Outpatient SAMIRA LOTT [id number] Samira 00:00:00 00:00:00 ANIL Seybol d 2021-02-04 2021-02-04 Outpatient LAB90 SAMIRA HOGAN [id number] Samira 11:25:00 11:25:00 Seybol d 2021-02-04 2021-02-04 Outpatient SAMIRA LOTT [id number] Samira 10:00:00 10:00:00 ANIL Seybol d 2020-12-10 2020-12-10 Outpatient GALATI, [facility] [id number] Kemp 00:00:00 00:00:00 ANKIT [address] 2020-12-10 2020-12-10 Outpatient GALATI, [facility] [id number] Kemp 00:00:00 00:00:00 ANKIT [address] 2020-12-10 2020-12-10 Outpatient [facility] [id number] Kemp 00:00:00 00:00:[address] 2020-12-02 2020-12-02 (TEL) STLMLC STLMLC [id number] Co mmon 00:00:00 00:00:00 [facility] 2020-07-14 2020-07-14 OFFICE STLMLC STLMLC [id number] Co mmon 00:00:00 00:00:00 VISIT EST Spir it PT LEVEL 3 - [facility] 2020-07-14 2020-07-14 (TEL) STLMLC STLMLC [id number] Co mmon 00:00:00 00:00:00 [facility] 2020-07-02 2020-07-02 OFFICE STLMLC STLMLC [id number] Co mmon 00:00:00 00:00:00 VISIT EST Spir it PT LEVEL 3 - [facility] 2020-06-16 2020-06-16 (TEL) STLMLC STLMLC [id number] Co mmon 00:00:00 00:00:00 Spirit - [facility] 2020-06-12 2020-06-12 OFFICE STLMLC STLMLC [id number] Co mmon 00:00:00 00:00:00 VISIT Spirit ESTAB PT - CHI LEVEL 4 [facility] 2020-05-14 2020-05-14 Outpatient GALATI, [facility] [id number] Kemp 00:00:00 00:00:00 ANKIT [address] 2020-05-07 2020-05-07 Outpatient GALATI, [facility] [id number] [address] [place] [address] 00:00:00 00:00:00 ANKIT [address] 2020-05-07 2020-05-07 Outpatient GALATI, [facility] [id number] Kemp 00:00:00 00:00:00 ANKIT [address] 2020-05-07 2020-05-07 Outpatient GALATI, [facility] [id number] Kemp 00:00:00 00:00:00 ANKIT [address] 2020-05-07 2020-05-07 Outpatient GALATI, [facility] [id number] Kemp 00:00:00 00:00:00 ANKIT [address] 2020-05-07 2020-05-07 Outpatient GALATI, [facility] [id number] Kemp 00:00:00 00:00:00 ANKIT [address] 2020-04-16 2020-04-16 OFFICE STLMLC STLMLC [id number] Co mmon 00:00:00 00:00:00 VISIT Spirit ESTAB PT - CHI LEVEL 4 [facility] 2020-03-21 2020-03-21 Outpatient [facility] [id number] Common 08:56:00 08:56:00 [facility] [address] [facility] 2019-10-07 2019-10-07 Outpatient [facility] [id number] Common 16:39:00 16:39:00 [facility] [address] Road [facility] 2019-10-04 2019-10-04 Outpatient Harsh-Michelleo VFP [facility] [id number] [id number] [facility] 02:34:00 02:34:00 _A_ [id number] Family Practic e 2019-10-04 2019-10-04 Outpatient Harsh-Mbayo VFP [facility] [id number] [id number] Village 02:34:00 02:34:00 _A_AH [id number] Family Practic e 2019-09-26 2019-09-26 Outpatient [facility] [id number] Common 13:00:00 13:00:[address] [facility] 2019-09-17 2019-09-17 Outpatient [facility] [id number] Common 21:54:00 21:54:[address] [facility] 2019-09-14 2019-09-14 [facility] [id number] Common 10:05:00 10:05:[address] [facility] 2019-09-12 2019-09-12 [facility] [id number] Common 10:15:00 10:15:[address] [facility] 2019-09-12 2019-09-12 Outpatient [facility] VFP VFP [id number] [facility] 07:22:00 07:22:00 _A_AH [id number] Family Practic e 2019-09-10 2019-09-10 [facility] [id number] [place] 08:45:00 08:45:[address] [facility] 2019-03-28 2019-03-28 [facility] [id number] [place] 13:00:00 13:00:[address] [facility] 2018-11-27 2018-11-27 [facility] [id number] [place] 16:42:00 16:42:[address] [facility] 2018-11-23 2018-11-23 [facility] [id number] Common 16:33:00 16:33:[address] [facility] 2018-11-21 2018-11-21 [facility] [id number] Common 15:17:00 15:17:[address] [facility] 2018-10-12 2018-10-12 [facility] [id number] Common 14:45:00 14:45:[address] [facility] 2018-08-23 2018-08-23 [facility] [id number] [place] 00:11:00 00:11:[address] [facility] 2018-07-14 2018-07-14 [facility] [id number] Common 13:15:00 13:15:[address] [facility] 2018-04-14 2018-04-14 [facility] [id number] Common 13:00:00 13:00:[address] [facility] 2018-04-06 2018-04-06 [facility] [id number] Common 08:51:00 08:51:[address] [facility] 2018-03-02 2018-03-02 [facility] [id number] Common 11:01:00 11:01:[address] [facility] 2018-01-12 2018-01-12 [facility] [id number] Common 14:00:00 14:00:[address] [facility] 2017-12-13 2017-12-13 [facility] [id number] Common 16:17:00 16:17:[address] [facility] 2017-12-07 2017-12-07 [facility] [id number] Common 19:39:00 19:39:[address] [facility] 2017-12-07 2017-12-07 [facility] [id number] Common 08:30:00 08:30:[address] [facility] [employer] [facility] Results Test Description Test Time Test Comments Results Result Comments Source EXTERNAL IMAGING 2023-03-16 16:37:00 Test Item Value Reference Range Interpretation Comme nts Radiology Study observation (narrative) (test code = 89707-9) JADE (test code = JADE) Rad CXR CHI LJ 03/16/23STAT Impression: ?Moderate to large right pleural effusion Complete reports scanned into chart. Provider notified. Lab Interpretation (test code = 71497-3) Abnormal Samira Brown - [id number] 16:26:00 Test Item Value Reference Range Interpretation Comments QuantaFlo left side 1.10 See_Comment [Automa samina message] The (test code = system which [employer] nerated this 59854-8U) result transmit samina reference range : 1.40 - 0.90 NA. The re ference range was not u sed to interpret this result as normal/abnormal . QuantaFlo right side 1.04 See_Comment Present ation Factors: (test code = Hypertension, 09225-0R) Hyperlipidemia, DiabetesExercis e Modality: At RestNormal - 1.40 - 1.00Borderline - 0.99 - 0.90Mild - 0.89 - 0.60Moderate - 0.59 - 0.30Severe - 0. 29 - 0.00 [Automated mess age] The system which [employer] nerated this result transmit samina reference range : 1.40 - 0.90 NA. The re ference range was not u sed to interpret this result as normal/abnormal . Samira Brown - External Notes Date/Time Note Provider Source 2023-03-16 Formatting of this note is different from the or iginal. Nelly 08:58:58-00:00 Chief Complaint Clinic Patient presents with Follow-up Follow up on diarrhea. Taryn ent states that the diarrhea has gotten better. She does state that she feels short of breath when walking short distances. She does have some nausea but no vomiting. Cristy Roger MA II 2023-03-01 Formatting of this note might be differe nt from the original. Christin Gillold 07:52:15-00:00 Patient here for diarrhea x 4 days with nausea/vomiting this morning. Clinic Electronically signed by Christin Ott LVN at 0 03/01/2023 8:09 AM CDT 2023-02-16 Formatting of this note is different fro m the original. Ale Villegas 07:55:15-00:00 Chief Complaint I Clinic Patient presents with Follow-up 2 week follow up on anxiety/depression Ale Hunt CMA I
[2023-03-16 13:17] LABS: Absolute Lymphocytes (CBC) 2.5 K/uL (0.7-4.9); Hematocrit 43.6 % (36.0-45.0); Lymphocytes % 25.8 % (15.3-44.8); MCV 89.3 fL (80-100); MPV 8.1 fL (7.6-11.3); Platelets 320 thou/uL (152-406); RBC Red Blood Cell Count 4.88 M/uL (3.86-4.86)
[2023-03-16] MEDS ORDERED: ONDANSETRON 4 MG/2 ML VIAL ONE (13:22)
[2023-03-16] MEDS ORDERED: FENTANYL CITR 100 MCG/2 ML ONE (13:22)
[2023-03-16 13:24] LABS: Protime INR 0.92
[2023-03-16 13:40] LABS: Albumin 3.5 g/dL (3.4-5.0); Bilirubin Direct 0.1 mg/dL (0-0.2); Bilirubin Indirect, Calculated 0.4 mg/dL (0.2-0.8); Bilirubin Total 0.5 mg/dL (0.2-1.0); Magnesium 1.9 mg/dL (1.6-2.4); Potassium 3.7 mEq/L (3.5-5.1); Protein, Total 7.4 g/dL (6.4-8.2); Troponin High Sensitivity 4.4 pg/mL (<58.9)
--- NOTE | 2023-03-16 14:07 | RAD REPORT ---
EXAM DESCRIPTION: CT - Chest Abd Pelvis Wo Con - 03/16/2023 1:48 pm CLINICAL HISTORY: Chest and abdomen pain. Chest pain;Abdominal distention COMPARISON: No comparisons TECHNIQUE: A limited noncontrast study was performed. All CT scans are performed using dose optimization technique as appropriate and may include automated exposure control or mA/KV adjustment according to patient size. FINDINGS: Soft tissue opacity is identified anterior right hilum with traction bronchiectasis.Large right pleural effusion.The left lung is grossly clear. No left pleural effusion. Mildly nodular contour to the liver suggests mild cirrhosis. No intra or extrahepatic biliary tree di latation. The spleen, pancreas, adrenal glands and kidneys are within normal limits. No bowel obstruction, free air, free fluid or abscess. Normal appendix. No pathologic lymphadenopath y in the abdomen or pelvis. No worrisome osseous finding. IMPRESSION: Large right pleural effusion.
--- NOTE | 2023-03-16 14:53 | ER ---
Nurse's Notes [facility] Name: Debra Oconnell Age: 68 yrs Sex: Female : 1955 Arrival Date: 03/16/2023 Time: 12:24 Bed 20 Private MD: Diagnosis: Unspecified kidney failure;Pleural effusion, not elsewhere classified-moderate to large , RIGHT;Dyspnea;Liver transplant status-2008;Unspecified cirrhosis of liver Presentation: 03/16 12:28 Chief complaint: Patient states: SOB X 2 days, hx of liver transplant , she had CXR iw today and the image showed fluid on her lung and to come to ER. Coronavirus screen: Client presents with at least one sign or symptom that may indicate coronavirus-19. Ebola Screen: Patient negative for fever greater than or equal to 101.5 degrees Fahrenheit, and additional compatible Ebola Virus Disease symptoms Patient denies exposure to infectious person. Patient denies travel to an Ebola-affected area in the 21 days before illness onset. No symptoms or risks identified at this time. Initial Sepsis Screen: Does the patient meet any 2 criteria? No. Patient's initial sepsis screen is negative. Does the patient have a suspected source of infection? No. Patient's initial sepsis screen is negative. Risk Assessment: Do you want to hurt yourself or someone else? Patient reports no desire to harm self or others. Onset of symptoms was March 14, 2023. 12:28 Method Of Arrival: Wheelchair iw 12:28 Acuity: SANCHEZ 3 iw Triage Assessment: 15:05 Respiratory: ph Historical: - Allergies: 12:29 Codeine (Upset stomach); iw 12:33 Morphine; iw - Home Meds: 12:30 losartan oral [Active]; Metformin Oral [Active]; Prograf Oral [Active]; Ursodiol Oral iw [Active]; amlodipine oral [Active]; Inderal LA Oral [Active]; Prozac Oral [Active]; - PMHx: 12:30 post liver trasnsplant; Hypertensive disorder; Diabetes mellitus; iw - Immunization history:: Adult Immunizations unknown. - Social history:: Smoking status: . Screenin:05 [facility] ED Fall Risk Assessment (Adult) History of falling in the last 3 months, ph including since admission No falls in past 3 months (0 pts) Confusion or Disorientation No (0 pts) Intoxicated or Sedated No (0 pts) Impaired Gait No (0 pts) Mobility Assist Device Used No (0 pt) Altered Elimination No (0 pt) Score/Fall Risk Level 0 - 2 = Low Risk Oriented to surroundings, Maintained a safe environment, Hourly rounding (assess needs \T\ fall precautionary measures) done. Abuse screen: Denies threats or abuse. Denies injuries from another. Nutritional screening: No deficits noted. Tuberculosis screening: No symptoms or risk factors identified. Assessment: 13:00 General: Appears in no apparent distress. uncomfortable, slender, well groomed, ph Behavior is calm, cooperative, appropriate for age. Pain: Complains of pain in posterior aspect of right lateral abdomen. Neuro: Level of Consciousness is awake, alert, obeys commands, Oriented to person, place, time, situation. Cardiovascular: Capillary refill < 3 seconds in bilateral fingers Patient's skin is warm and dry. Rhythm is regular. Respiratory: Reports shortness of breath pain with movement Airway is patent Respiratory effort is even, unlabored, Respiratory pattern is regular, symmetrical, Denies cough. GI: Reports diarrhea, nausea, vomiting. : No signs and/or symptoms were reported regarding the genitourinary system. Derm: Skin is pink, warm \T\ dry. 14:30 Reassessment: Patient appears in no apparent distress at this time. Patient and/or me1 family updated on plan of care and expected duration. Pain level reassessed. Patient is alert, oriented x 3, equal unlabored respirations, skin warm/dry/pink. 17:45 Reassessment: Patient appears in no apparent distress at this time. Patient and/or ph family updated on plan of care and expected duration. Pain level reassessed. Patient is alert, oriented x 3, equal unlabored respirations, skin warm/dry/pink. Dr Munoz at bedside for thoracentesis, approx 500cc fluid removed. 18:01 Reassessment: Patient appears in no apparent distress at this time. Patient and/or ph family updated on plan of care and expected duration. Pain level reassessed. Patient is alert, oriented x 3, equal unlabored respirations, skin warm/dry/pink. Attempted to call report, went to voicemail. Vital Signs: 12:28 BP 118 / 87; Pulse 87; Resp 19; Temp 98.4; Pulse Ox 92% on R/A; Weight 48.08 kg; Height iw 5 ft. 2 in. ; 14:00 BP 112 / 83; Pulse 74; Resp 18; Pulse Ox 98% on 2 lpm NC; ph 15:05 BP 100 / 71; Pulse 85; Resp 18; Pulse Ox 96% on 2 lpm NC; ph 16:00 BP 110 / 78; Pulse 78; Resp 18; Pulse Ox 96% on R/A; me1 16:43 BP 109 / 80; Pulse 75; Resp 18; Temp 97.8; Pulse Ox 96% on R/A; ph 18:00 BP 102 / 76; Pulse 74; Resp 16; Pulse Ox 95% on R/A; me1 12:28 Body Mass Index 19.39 (48.08 kg, 157.48 cm) iw ED Course: 12:26 Patient arrived in ED. im 12:27 Solomon Bowers MD is Attending Physician. ann marie 12:29 Triage completed. iw 12:30 Arm band placed on. iw 12:52 Margarita Delgado, EMIR is Primary Nurse. ph 13:05 No provider procedures requiring assistance completed. Initial lab(s) drawn, by me, ph sent to lab. First set of blood cultures drawn by me, Second set of blood cultures drawn by me. Inserted saline lock: 22 gauge in right forearm, using aseptic technique. Blood collected. 13:49 CT Chest Abdomen Pelvis W/O Contrast In Process Unspecified. EDMS 14:51 Clair Alas MD is Hospitalizing Provider. ann marie 15:07 Patient has correct armband on for positive identification. Bed in low position. Call ph light in reach. Side rails up X 1. Client placed on continuous cardiac and pulse oximetry monitoring. NIBP monitoring applied. Door closed. Noise minimized. Warm blanket given. 17:[address] Munoz w/ thoracentesis of R sided pleural effusion, pt tolerated well, ph approx 500cc fluid removed. 18:35 Patient admitted, IV remains in place. me1 Administered Medications: 12:36 CANCELLED (Duplicate Order): NS 0.9% IV 500 ml IV at bolus once ann marie 13:29 Drug: NS 0.9% IV 1000 ml Route: IV; Rate: 125 ml/hr; Site: right forearm; ph 15:00 Follow up: Response: No adverse reaction; IV Status: Infusion continued upon admission ph 13:29 Drug: fentaNYL (PF) IVP 25 mcg Route: IVP; Site: right forearm; ph 14:00 Follow up: Response: No adverse reaction ph 13:29 Drug: Ondansetron IVP 4 mg Route: IVP; Site: right forearm; ph 14:00 Follow up: Response: No adverse reaction ph 17:07 Drug: fentaNYL (PF) IVP 25 mcg Route: IVP; Site: right forearm; ph 17:30 Follow up: Response: No adverse reaction ph Medication: 15:07 VIS not applicable for this client. ph Outcome: 14:52 Decision to Hospitalize by Provider. ann marie 18:35 Admitted to Med/surg accompanied by tech, via wheelchair, room 202, Report called to meVera Pace;or 18:35 Condition: good 18:35 Instructed on the need for admit. 18:36 Patient left the ED. me1 Signatures: Dispatcher [employer] Solomon Ortiz MD MD cha Williams, Irene, RN RN Margarita Delgado RN RN Yulissa Monterroso Michelle, RN RN ri1
--- NOTE | 2023-03-16 14:53 | EDPHYS ---
Physician Documentation [facility] Name: Debra Oconnell Age: 68 yrs Sex: Female : 1955 Arrival Date: 03/16/2023 Time: 12:24 Bed 20 Private MD: ED Physician Solomon Bowers HPI: 03/16 13:08 This 68 yrs old Female presents to ER via Wheelchair with complaints of ann marie Shortness Of Breath. 13:08 The patient has shortness of breath at rest, with light activity. Onset: The ann marie symptoms/episode began/occurred 3 day(s) ago. Duration: The symptoms are continuous, and are steadily getting worse. The patient's shortness of breath is aggravated by nothing, is alleviated by nothing. Associated signs and symptoms: Pertinent positives: non-productive cough. Severity of symptoms: At their worst the symptoms were mild in the emergency department the symptoms are unchanged. The patient has not experienced similar symptoms in the past. Historical: - Allergies: 12:29 Codeine (Upset stomach); iw 12:33 Morphine; iw - Home Meds: 12:30 losartan oral [Active]; Metformin Oral [Active]; Prograf Oral [Active]; Ursodiol Oral iw [Active]; amlodipine oral [Active]; Inderal LA Oral [Active]; Prozac Oral [Active]; - PMHx: 12:30 post liver trasnsplant; Hypertensive disorder; Diabetes mellitus; iw - Immunization history:: Adult Immunizations unknown. - Social history:: Smoking status: . ROS: 13:10 Constitutional: Negative for fever, chills, and weight loss, Eyes: Negative for injury, ann marie pain, redness, and discharge, ENT: Negative for injury, pain, and discharge, Neck: Negative for injury, pain, and swelling, Cardiovascular: Negative for chest pain, palpitations, and edema, Abdomen/GI: Negative for abdominal pain, nausea, vomiting, diarrhea, and constipation, Back: Negative for injury and pain, : Negative for injury, bleeding, discharge, and swelling, MS/Extremity: Negative for injury and deformity, Skin: Negative for injury, rash, and discoloration, Neuro: Negative for headache, weakness, numbness, tingling, and seizure, Psych: Negative for depression, anxiety, suicide ideation, homicidal ideation, and hallucinations, Allergy/Immunology: Negative for hives, rash, and allergies, Endocrine: Negative for neck swelling, polydipsia, polyuria, polyphagia, and marked weight changes, Hematologic/Lymphatic: Negative for swollen nodes, abnormal bleeding, and unusual bruising. 13:10 Respiratory: Positive for cough, shortness of breath, at rest. Exam: 13:10 Constitutional: This is a well developed, well nourished patient who is awake, alert, ann marie and in no acute distress. Head/Face: Normocephalic, atraumatic. Eyes: Pupils equal round and reactive to light, extra-ocular motions intact. Lids and lashes normal. Conjunctiva and sclera are non-icteric and not injected. Cornea within normal limits. Periorbital areas with no swelling, redness, or edema. ENT: Nares patent. No nasal discharge, no septal abnormalities noted. Tympanic membranes are normal and external auditory canals are clear. Oropharynx with no redness, swelling, or masses, exudates, or evidence of obstruction, uvula midline. Mucous membranes moist. Neck: Trachea midline, no thyromegaly or masses palpated, and no cervical lymphadenopathy. Supple, full range of motion without nuchal rigidity, or vertebral point tenderness. No Meningismus. Chest/axilla: Normal chest wall appearance and motion. Nontender with no deformity. No lesions are appreciated. Cardiovascular: Regular rate and rhythm with a normal S1 and S2. No gallops, murmurs, or rubs. Normal PMI, no JVD. No pulse deficits. Abdomen/GI: Soft, non-tender, with normal bowel sounds. No distension or tympany. No guarding or rebound. No evidence of tenderness throughout. Back: No spinal tenderness. No costovertebral tenderness. Full range of motion. Female : Normal external genitalia. Skin: Warm, dry with normal turgor. Normal color with no rashes, no lesions, and no evidence of cellulitis. MS/ Extremity: Pulses equal, no cyanosis. Neurovascular intact. Full, normal range of motion. Neuro: Awake and alert, GCS 15, oriented to person, place, time, and situation. Cranial nerves II-XII grossly intact. Motor strength 5/5 in all extremities. Sensory grossly intact. Cerebellar exam normal. Normal gait. Psych: Awake, alert, with orientation to person, place and time. Behavior, mood, and affect are within normal limits. 13:10 Respiratory: the patient does not display signs of respiratory distress, Respirations: normal, Breath sounds: decreased breath sounds, that are moderate, are heard in the right posterior upper lobe, right posterior middle lobe and right posterior lower lobe. 13:31 ECG was reviewed by the Attending Physician. [facility] Vital Signs: 12:28 BP 118 / 87; Pulse 87; Resp 19; Temp 98.4; Pulse Ox 92% on R/A; Weight 48.08 kg; Height iw 5 ft. 2 in. ; 14:00 BP 112 / 83; Pulse 74; Resp 18; Pulse Ox 98% on 2 lpm NC; ph 15:05 BP 100 / 71; Pulse 85; Resp 18; Pulse Ox 96% on 2 lpm NC; ph 16:00 BP 110 / 78; Pulse 78; Resp 18; Pulse Ox 96% on R/A; me1 16:43 BP 109 / 80; Pulse 75; Resp 18; Temp 97.8; Pulse Ox 96% on R/A; ph 18:00 BP 102 / 76; Pulse 74; Resp 16; Pulse Ox 95% on R/A; me1 12:28 Body Mass Index 19.39 (48.08 kg, 157.48 cm) iw MDM: 12:28 Patient medically screened. ann marie 13:12 Differential diagnosis: pneumonia, Pneumothorax pulmonary edema, reactive airway ann marie disease, Hepatitis, non-specific abd pain, pancreatitis, Ureterolithiasis, urinary tract infection. Antibiotic administration: Not indicated. Differential Diagnosis: Obstructed Airway Bronchitis Influenza Upper Respiratory Infection Sinusitis Pharyngitis Asthma Exacerbation Viral Syndrome Pneumonia. Immunization status: Pneumococcal vaccine: within last 5 years. Influenza vaccine: within last 5 years. Data reviewed: vital signs, nurses notes, lab test result(s), EKG, radiologic studies, CT scan, plain films. Consideration of Admission/Observation Escalation of care including admission/observation considered. I considered the following discharge prescriptions or medication management in the emergency department Medications were administered in the Emergency Department. See MAR. Test considered but Not performed: MRI: no mri chest. Historians other than the Patient: Spouse/Significant Other: informed. Care significantly affected by the following chronic conditions: Diabetes, Hypertension, Liver Disease, liver transplant 2009, yazidism. Counseling: I had a detailed discussion with the patient and/or guardian regarding the historical points, exam findings, and any diagnostic results supporting the discharge/admit diagnosis, lab results, radiology results, the need for further work-up and treatment in the hospital. 03/16 12:31 Order name: Basic Metabolic Panel; Complete Time: 14:50 [facility] 03/16 12:31 Order name: CBC with Diff; Complete Time: 14:50 [facility] 03/16 12:31 Order name: LFT's; Complete Time: 14:50 [facility] 03/16 12:31 Order name: Magnesium; Complete Time: 14:50 [facility] 03/16 12:31 Order name: NT PRO-BNP; Complete Time: 14:50 [facility] 03/16 12:31 Order name: PT-INR; Complete Time: 14:50 [facility] 03/16 12:31 Order name: Troponin HS; Complete Time: 14:50 [facility] 03/16 12:31 Order name: Lipase; Complete Time: 14:50 [facility] 03/16 12:31 Order name: Urinalysis w/ reflexes [facility] 03/16 12:37 Order name: Blood Culture Adult (2) [facility] 03/16 12:37 Order name: Lactate w/ 2H reflex if indic.; Complete Time: 14:50 [facility] 03/16 12:37 Order name: AMMONIA; Complete Time: 14:50 [facility] 03/16 16:29 Order name: Magnesium [facility] 03/16 16:29 Order name: Phosphorus [facility] 03/16 13:08 Order name: CT Chest Abdomen Pelvis W/O Contrast; Complete Time: 14:50 [facility] 03/16 17:55 Order name: XRAY Chest Pa And Lat (2 Views) 03/16 12:31 Order name: EKG; Complete Time: 12:32 [facility] 03/16 16:26 Order name: CONS Physician Consult [facility] 03/16 16:29 Order name: 60g Consistent Carbohydrate (ADA 1800/1999) [facility] 03/16 16:29 Order name: 60g Consistent Carbohydrate (ADA 1800/1999) [facility] 03/16 12:31 Order name: Cardiac monitoring; Complete Time: 13:29 [facility] 03/16 12:31 Order name: EKG - Nurse/Tech; Complete Time: 13:29 [facility] 03/16 12:31 Order name: IV Saline Lock; Complete Time: 13:29 [facility] 03/16 12:31 Order name: Labs collected and sent; Complete Time: 13:29 [facility] 03/16 12:31 Order name: O2 Per Protocol; Complete Time: 13:29 ann marie 03/16 12:31 Order name: O2 Sat Monitoring; Complete Time: :29 ann marie EC: Rate is 70 beats/min. Rhythm is regular. QRS [place] is Normal. [place] interval is normal. QRS ann marie interval is normal. QT interval is normal. No Q waves. T waves are Normal. No ST changes noted. Clinical impression: NSR w/ Non-specific ST/T Changes and No evidence of ischemia. Interpreted by me. Reviewed by me. Administered Medications: 12:36 CANCELLED (Duplicate Order): NS 0.9% IV 500 ml IV at bolus once ann marie 13:29 Drug: NS 0.9% IV 1000 ml Route: IV; Rate: 125 ml/hr; Site: right forearm; ph 15:00 Follow up: Response: No adverse reaction; IV Status: Infusion continued upon admission ph 13:29 Drug: fentaNYL (PF) IVP 25 mcg Route: IVP; Site: right forearm; ph 14:00 Follow up: Response: No adverse reaction ph 13:29 Drug: Ondansetron IVP 4 mg Route: IVP; Site: right forearm; ph 14:00 Follow up: Response: No adverse reaction ph 17:07 Drug: fentaNYL (PF) IVP 25 mcg Route: IVP; Site: right forearm; ph 17:30 Follow up: Response: No adverse reaction ph Disposition Summary: 03/16/23 14:52 Hospitalization Ordered Hospitalization Status: Observation ann marie Provider: Clair Alas cha [facility] Condition: Stable ann marie Problem: new ann marie Symptoms: have improved ann marie Bed/Room Type: Standard ann marie Room Assignment: 202(03/16/23 16:39) bd Diagnosis - Unspecified kidney failure ann marie - Pleural effusion, not elsewhere classified - moderate to large , RIGHT ann marie - Dyspnea ann marie - Liver transplant status - 2008 ann marie - Unspecified cirrhosis of liver ann marie Forms: - Medication Reconciliation Form ann marie - SBAR form ann marie - Leadership Thank You Letter ann marie Signatures: Dispatcher [employer] Christina Valentin Corey, MD MD cha Williams, Irene, RN RN Margarita Delgado RN RN Aidee Thomas RN RN me1 Corrections: (The following items were deleted from the chart) 12:36 12:31 NS 0.9% IV 500 ml IV at bolus once ordered. ann marie jesus 13:25 12:32 Chest Single View+RAD.RAD.BRZ ordered. EDMS EDMS 16:39 14:52 ann marie engle
[2023-03-16] MEDS ORDERED: ACETAMINOPHEN 325 MG TABLET PO PRN (16:24)
[2023-03-16] MEDS ORDERED: HYDROCODONE/APAP 5/325 MG TAB PO PRN (16:24)
[2023-03-16] MEDS ORDERED: ONDANSETRON 4 MG/2 ML VIAL IV PRN (16:27)
--- NOTE | 2023-03-16 16:28 | P.HP ---
Certification for Inpatient Patient admitted to: Inpatient With expected LOS: >2 Midnights Patient will require the following post-hospital care: None Practitioner: I am a practitioner with admitting privileges, knowledge of patient current condition, hospital course, and medical plan of care. Services: Services provided to patient in accordance with Admission requirements found in Title 42 Section 412.3 of the Code of Federal Regulations Patient History Date of Service: 03/16/23 Reason for admission: SOB History of Present Illness: Patient is a 68-year-old female with a past medical history significant for DM 2, hypertension, Liver cirrhosis status post liver transplant who presents with complaint of shortness of breath that has been ongoing for the past 2 days. Patient also reports right upper\\lower back pain rated as 10/10 severity and described as sharp in quality. Patient reported associated signs and symptoms of chills and cough. Patient denies any other signs or symptoms. Symptoms are aggravated or relieved by nothing. Patient reported that she followed up with her PCP who did an x-ray which indicated pleural effusion. Patient was instructed to go to the ER for further management. Patient decided to present to the ER as directed. Of Note, patient reported that she has been having diarrhea for the past 3 weeks. Allergies codeine Adverse Reaction (Verified 03/16/23 17:06) Nausea/Vomiting morphine Adverse Reaction (Verified 03/16/23 17:06) Nausea/Vomiting Home Medications: Amlodipine [Norvasc] 5 mg PO DAILY 03/16/23 Losartan Potassium 25 mg PO DAILY 03/16/23 Tacrolimus 2.5 mg PO BID 03/16/23 ursodioL [Actigall*] 300 mg PO DAILY 03/16/23 - Past Medical/Surgical History -: DM 2 -: HTN -: Liver transplant - Family History Father -: Heart disease, Other (see notes) (DC) Mother -: Cancer - Social History Smoking Status: Former smoker Alcohol use: No CD- Drugs: No Caffeine use: Yes Place of Residence: Home Review of Systems General: Chills Eyes: Unremarkable ENT: Unremarkable Respiratory: Cough, Shortness of Breath Cardiovascular: Unremarkable Gastrointestinal: Unremarkable Genitourinary: Unremarkable Musculoskeletal: Back Pain Integumentary: Unremarkable Neurological: Unremarkable Lymphatics: Unremarkable Physical Examination - Physical Exam General: Alert, In no apparent distress, Oriented x3, Mild distress HEENT: Atraumatic, PERRLA, Mucous membr. moist/pink, EOMI, Sclerae nonicteric Neck: Supple, 2+ carotid pulse no bruit, No LAD, Without JVD or thyroid abnormality Respiratory: Diminished Cardiovascular: No edema, Regular rate/rhythm, Normal S1 S2 Capillary refill: <2 Seconds Gastrointestinal: Normal bowel sounds, Soft and benign Musculoskeletal: No clubbing, No tenderness Integumentary: No rashes, No significant lesion Neurological: Normal speech, Normal tone, Normal affect Lymphatics: No axilla or inguinal lymphadenopathy - Studies Laboratory Data (last 24 hrs) 03/16/23 03/16/23 03/16/23 13:05 13:05 13:05 WBC 9.90 Hgb 15.0 Hct 43.6 Plt Count 320 PT 10.1 INR 0.92 Sodium 139 Potassium 3.7 BUN 20 H Creatinine 1.70 H Glucose 138 H Magnesium 1.9 Total Bilirubin 0.5 AST 10 L ALT 15 Alkaline Phosphatase 108 Lipase 17 Assessment and Plan - Plan -- Right pleural effusion. CT imaging indicates "large right pleural effusion". Surgeon consulted. Plan for thoracentesis. Will await further recommendation from Surgeon --Liver cirrhosis. CT imaging indicates "Mildly nodular contour to the liver suggests mild cirrhosis". Patient had a liver transplant in 2008 due to liver cirrhosis secondary to hep C. Patient reported that she was treated for hep C. Continue antirejection medications. Patient follows up with an outpatient steam distribution supervisor. Continue supportive care. --Acute pain. We will manage pain with current pain medication regimen. --DM2. BS monitoring with sliding scale insulin. --Hypertension. Patient currently hypotensive. We will hold off on BP meds. --Diarrhea. Stool studies pending to rule out any infectious process. Continue supportive care. -- XIANG. Likely prerenal. Secondary to diarrhea. Avoid nephrotoxins. Continue p.o. hydration. We will continue to monitor renal functions. --DVT prophylaxis with SCDs Discharge Plan: Home Plan to discharge in: Greater than 2 days - Advance Directives Does patient have a Living Will: No Does patient have a Durable POA for Healthcare: No - Code Status/Comfort Care Code Status Assessed: Yes Physician Review: Patient Assessed, Agree with Above Assessment and Plan Critical Care: No
[2023-03-16] MEDS: INSULIN -REGULAR HUMAN 50 UNIT/0.5 ML ML SQ SCH ×2 (16:30→20:25)
[2023-03-16] MEDS ORDERED: LIDOCAINE 2% W/EPI 1:200,000 MPF 20 ML VIAL IM ONE (17:31)
--- NOTE | 2023-03-16 18:05 | P.OP ---
Preoperative diagnosis: Right Pleural Effusion Postoperative diagnosis: Right Pleural Effusion Primary procedure: RIGHT Thoracentesis Anesthesia: 1% lidocaine with epi Estimated blood loss: <1cc Specimen: Straw colored RIGHT pleural fluid Findings: ~ 500 cc straw colored non-bloody pleural fluid Complications: None Transferred to: Other (ER) Condition: Good
[2023-03-16 18:45] LABS: Magnesium 1.9 mg/dL (1.6-2.4); Phosphorus 3.2 mg/dL (2.5-4.9)
[2023-03-16 18:48] LABS: Thyroid Stimulating Hormone 4.56 uIU/mL (0.358-3.740)
--- NOTE | 2023-03-16 18:53 | RAD REPORT ---
EXAM DESCRIPTION: RAD - Chest Pa And Lat (2 Views) - 03/16/2023 6:25 pm CLINICAL HISTORY: post thoracentesis Chest pain. COMPARISON: Chest Pa And Lat (2 Views) dated 03/16/2023; Chest Single View dated 09/14/2019; CHEST SIN GLE VIEW dated 06/23/2014; CHEST SINGLE VIEW dated 04/26/2009 FINDINGS: The right pleural effusion has reduced in size moderately. There is a small right apical p neumothorax noted estimated at 10% of lung volume. Left lung is clear. The is normal in size. IMPRESSION: Moderate decrease in size of right pleural effusion. 10% lung volume right pneumothorax is seen. Monitoring of this finding with repeat chest radiograph 1 2 hours would be advised.
[2023-03-16 20:15] VITALS: BMI 19.3
[2023-03-16] MEDS ORDERED: TACROLIMUS PO SCH (21:22)
[2023-03-16 21:27] LABS: Appearance SLT. TURBID (CLEAR); Body Fluid Source PLEURAL; Color of fluid Yellow (COLORLESS)
[2023-03-16 21:28] LABS: Body Fluid WBC 486 /mm^3
--- NOTE | 2023-03-17 01:01 | OP ---
Date of Procedure: 03/16/2023 Surgeon: Choco Munoz MD, Preoperative Diagnosis: Right pleural effusion. Postoperative Diagnosis: Right pleural effusion. Procedure Performed: Right thoracentesis. Anesthesia: 1% lidocaine with epinephrine utilized. Estimated Blood Loss: Less than 1 cc. Specimen: Straw-colored right pleural fluid. Findings: Approximately 500 cc of straw-colored nonbloody pleural fluid removed from the right thora cic cavity. Complications: None. The patient remained in the ER in good condition throughout the procedure. Procedure In Detail: After informed consent was obtained, the patient was prepped and draped in the usual sterile fashion. After adequate anesthesia achieved, anesthetized the infrascapular ribs down through subcutaneous tissues at approximately the 5th intercostal space with 1% lidocaine with epinep hrine. Finder needle was placed into the thoracic cavity and straw-colored pleural fluid was returne d. I injected epinephrine throughout the tract to anesthetize the tract in its entirety. We made a small stab incision overlying the area and passed in the Safe-T pigtail thoracentesis catheter placed in the right thoracic space without incident or complication, advanced it posteriorly and inferiorly and straw-colored fluid was withdrawn from this. Approximately 500 cc of straw-colored fluid was re turned without any evidence of blood color tinge at all throughout the procedure. I sent 3 vials of this for analysis. After the 500 cc was withdrawn, I pulled the pigtail catheter without incident or complication while remaining on negative pressure. I then cleansed the area once again at the inser tion site and placed a sterile dressing over top. The patient tolerated the procedure without eviden ce of any complication and remained in the ER in good condition throughout the procedure. All counts were correct at the end of the case. Stat chest x-ray will be performed. LEVI/MODL Voice ID: [id number] Report ID: [id number]
[2023-03-17 03:39] LABS: Absolute Lymphocytes (CBC) 2.6 K/uL (0.7-4.9); Hematocrit 39.7 % (36.0-45.0); Lymphocytes % 31.3 % (15.3-44.8); MCV 90.4 fL (80-100); MPV 8.3 fL (7.6-11.3); Platelets 261 thou/uL (152-406); RBC Red Blood Cell Count 4.39 M/uL (3.86-4.86)
[2023-03-17 03:41] LABS: Albumin 3.1 g/dL (3.4-5.0); Bilirubin Total 0.3 mg/dL (0.2-1.0); Potassium 4.5 mEq/L (3.5-5.1); Protein, Total 6.5 g/dL (6.4-8.2)
[2023-03-17] MEDS: INSULIN -REGULAR HUMAN 50 UNIT/0.5 ML ML SQ SCH ×3 (07:30→16:30)
[2023-03-17 08:24] VITALS: O2SAT 96
[2023-03-17] MEDS ORDERED: LOSARTAN POTASSIUM 50 MG TABLET PO SCH (09:00)
[2023-03-17] MEDS ORDERED: AMLODIPINE 5 MG TAB PO SCH (09:00)
[2023-03-17] MEDS ORDERED: ursodioL 300 MG CAP PO SCH (09:00)
[2023-03-17] MEDS ORDERED: TACROLIMUS 1 MG CAPSULE PO SCH (09:00)
[2023-03-17] MEDS ORDERED: TACROLIMUS 0.5 MG CAPSULE PO SCH (09:00)
[2023-03-17] MEDS ORDERED: TACROLIMUS 5 MG PO SCH (09:00)
[2023-03-17] MEDS ORDERED: ASPIRIN 81 MG CHEWABLE TABLET PO SCH (09:00)
--- NOTE | 2023-03-17 10:14 | RAD REPORT ---
EXAM DESCRIPTION: XR Chest, 1 View CLINICAL HISTORY: The patient is 68 years old and is Female; post thoracentesis TECHNIQUE: Frontal view of the chest. COMPARISON: No images were made available for comparison. FINDINGS: LUNGS: The left lung is clear. Hazy opacity throughout the right lung is noted. Atelec tasis/collapse of the right lower lobe is suggested. PLEURAL SPACE: Blunting of the right costophrenic angle is present. No pneumothorax. HEART: Unremarkable. No cardiomegaly. MEDIASTINUM: Unremarkable. BONES/JOINTS: Evidence of healed left-sided rib fractures are noted. UPPER ABDOMEN: Elevation the right hemidiaphragm is present. IMPRESSION: Findings suggest a moderate right pleural effusion. Comparison with prior imaging would be useful. Electronically signed by: Renay Lopez MD 03/17/2023 1:21 AM CDT Due to temporary technical issues with the PACS/Fluency reporting system, reports are being signed by the in house radiologist without review as a courtesy to ensure prompt reporting. The interpreting r adiologist is fully responsible for the content of the report.
[2023-03-17] MEDS ORDERED: FLUOXETINE 20 MG CAP PO SCH (11:00)
[2023-03-17] MEDS ORDERED: WELLBUTRIN PO SCH ×2 (11:00)
--- NOTE | 2023-03-17 11:22 | RAD REPORT ---
EXAM DESCRIPTION: RAD - Chest Single View - 03/17/2023 11:07 am CLINICAL HISTORY: POST THORACENTESIS Chest pain. COMPARISON: <Comparisons> FINDINGS: Portable technique limits examination quality. Moderate right pleural effusion is noted. The left lung is grossly clear. Small right apical pneumoth orax is present, estimated at 5-10% of lung volume and unchanged. The heart is normal in size. No dis placed fractures. IMPRESSION: Stable small right apical pneumothorax 03/16/2023 study.
--- NOTE | 2023-03-17 12:39 | EKG ---
Test Date: 2023-03-16 Test Time: 13:20:31 Office Rental Clerk: MATEUS MEASUREMENT RESULTS: Intervals: Rate: 70 OK: 166 QRSD: 76 QT: 402 QTc: 434 [place]: P: 77 OK: 166 QRS: 101 T: 91 INTERPRETIVE STATEMENTS: Normal sinus rhythm Rightward axis Septal infarct, age undetermined Abnormal ECG Compared to ECG 09/14/2019 13:15:14 Right-axis deviation now present Ventricular premature complex(es) no longer present Myocardial infarct finding still present Electronically Signed On 03-17-23 12:37:12 CDT by Nile Matamoros
[2023-03-17] MEDS ORDERED: PROPRANOLOL HCL 10 MG TAB PO SCH (14:00)
[2023-03-17] MEDS ORDERED: MEPERIDINE HCL 25 MG/ML SYR IV ONE (14:50)
[2023-03-17] MEDS ORDERED: FENTANYL CITR 100 MCG/2 ML IV ONE (16:00)
--- NOTE | 2023-03-17 16:21 | RAD REPORT ---
EXAM DESCRIPTION: RADChest Single View03/17/2023 3:56 pm CLINICAL HISTORY: Pneumothorax COMPARISON: March 17 FINDINGS: The right pneumothorax has decreased size. It is relatively small No change in right pleural effusion.
[2023-03-17 16:46] VITALS: BP 119/83; TEMP 97.8
--- NOTE | 2023-03-17 18:30 | P.PN ---
Subjective Date of Service: 03/17/23 Chief Complaint: SOB Subjective: Improving (no longer has shortness of breath, has anxiety) Physical Examination - Vital Signs Temperature: 97.8 F Blood Pressure: 119/83 Pulse: 90 Respirations: 14 Pulse Ox (%): 94 - Physical Exam General: Alert, In no apparent distress, Cooperative Respiratory: Clear to auscultation bilaterally, Normal air movement Cardiovascular: Regular rate/rhythm - Studies Laboratory Data (last 24 hrs) 03/17/23 03/17/23 03/16/23 02:27 02:27 18:10 WBC 8.30 Hgb 13.3 D Hct 39.7 Plt Count 261 Sodium 141 Potassium 4.5 D BUN 20 H Creatinine 1.51 H Glucose 108 H Phosphorus 3.2 Magnesium 1.9 Total Bilirubin 0.3 AST 8 L ALT 13 Alkaline Phosphatase 100 Triglycerides 268 H Cholesterol 133 HDL Cholesterol 40 Cholesterol/HDL Ratio 3.33 Microbiology Data (last 24 hrs): 03/16/23 17:50 Body Fluid - Thoracenteses Gram Stain - Final Assessment And Plan - Current Problems (Diagnosis) (1) Pleural effusion Current Visit: Yes Status: Acute Plan: chest xray showed resolution of pneumothorax, catheter during thoracentesis allowed air entry, effusion remains present, but improved - patient is asymptomatic - serial chest xrays, thoracentesis as needed Physician Review: Patient Assessed, Agree with Above Assessment and Plan
--- NOTE | 2023-03-18 07:40 | CON ---
Date of Consultation: 03/16/2023 Brief History Of Present Illness: The patient is a 68-year-old female with a past medical history si gnificant for diabetes, hypertension, cirrhosis status post liver transplant, who presented to the [facility] with shortness of breath ongoing 2 days prior to her arrival at the hospital on 03/14 with ini tial presentation. She has had significant back pain, which was sharp in quality at that point. She did report some chills and cough as well. She was seen in the ER, which showed a significant right pleural effusion. As such, ER physician notified me that [facility] and plan for a thoracentesis by the radiologist at the earliest availability. I am asked to se e the patient in consultation in case for whatever reason she needs to the effusion drained in a more timely fashion or if she would opt for more rapid drainage in the ER. Past Medical History: Significant for diabetes, hypertension, cirrhosis with liver. Past Surgical History: Liver transplant. Allergies: TO CODEINE AND MORPHINE. Home Medications: Include Norvasc, losartan, tacrolimus, and Actigall. Social History: She is a former smoker. Denies alcohol. Denies recreational drug use. Review of Systems: Ten-point review of systems other than HPI, denies. Physical Examination: General: At the time of my examination; she is awake, alert, oriented. Psychiatric: She is appropriate, conversive. HEENT: She is normocephalic. Sclerae are anicteric. Mucous membranes are moist. Oropharynx is castillo ar. Neck: Supple without JVD. Chest: Expansion and excursion. Cardiovascular: Regular rate and rhythm. Pulmonary: Decreased breath sounds on the right. Abdomen: Soft. Well-healed surgical scars evident. Extremities: No clubbing, cyanosis, or edema. Skin: Warm and dry. Vital Signs: At the time of my examination; blood pressure 124/76, pulse 81, respiratory rate 17, te mperature 97.2, SpO2 is 96% on room air. Laboratory Data: White blood cell count was 9.9, hemoglobin is 15.0, hematocrit of 43.6, platelet co unt was 320. Her PT 10.1, INR 0.92. Sodium 139, potassium 3.7, chloride 111, carbon dioxide is 21, BUN 22, creatinine 1.7, glucose is 138, AST is 10, ALT 15, alkaline phosphatase 108. Her lipase was 17. She had an imaging performed, which included a CT of the chest, abdomen, pelvis which was offici ally read as a large right pleural effusion. Assessment And Plan: This is a 68-year-old woman, who has a right pleural effusion. 1.Continue medical management. 2.I have reached out to the staff and had been informed that the next available opportunity to drain her chest/thoracic cavity on the right would be Tuesday. As such, I have discussed this with the dorothy child and she would prefer me to perform the procedure in the ER for symptomatic improvement as she garcia s some shortness of breath and pain with deep inspiration. She states she cannot take a deep breath without pain and would like to proceed. 3.I have explained the risks, benefits, and alternatives of right thoracentesis including, but not l imited to bleeding, infection, damage to surrounding tissues, injury to lungs, heart, great blood ves sels, blood clots, strokes, heart attacks, other unforeseen complications, and need for further opera tion and procedures. The patient agrees to proceed as indicated. We will proceed with right thorace ntesis in the ER under sterile conditions. Thank you for this interesting consult. LEVI/RUBÉN Voice ID: [id number] Report ID: [id number]
== END 2023-03-17 18:29 | disposition home or self-care (01) | DRG 187 ==
LOC: ER 12:24 → ERHOLD 16:22 → 2ND 18:21 → OBSVTOIN 03-17 10:14
PROVIDERS: ADMIT Hospitalist; ATTEND Hospitalist
PROC: 0W993ZX Drainage of Right Pleural Cavity, Percutaneous Approach, Diagnostic (ICD-10-PCS; principal; 2023-03-16)
DX: J90 Pleural effusion, not elsewhere classified (principal); J95.811 Postprocedural pneumothorax; Z94.4 Liver transplant status; N17.9 Acute kidney failure, unspecified; K74.60 Unspecified cirrhosis of liver; I10 Essential (primary) hypertension; E11.9 Type 2 diabetes mellitus without complications; R19.7 Diarrhea, unspecified; R52 Pain, unspecified; I95.9 Hypotension, unspecified; F41.9 Anxiety disorder, unspecified; Z86.19 Personal history of other infectious and parasitic diseases; Z87.891 Personal history of nicotine dependence; Z79.899 Other long term (current) drug therapy; Z88.5 Allergy status to narcotic agent; Z82.49 Family history of ischemic heart disease and other diseases of the circulatory system; Z80.9 Family history of malignant neoplasm, unspecified
CPT/HCPCS: 36415; 71045; 71046; 71250; 74176; 80048; 80053; 80061; 80076; 82140; 82945; 82947; 83605; 83615; 83690; 83735; 83880; 84100; 84157; 84311; 84439; 84443; 84484; 85025; 85610; 87015; 87040; 87102; 87116; 87205; 87206; 88108; 88305; 89050; 93005; 96361; 96374; 96375; 99285; G0378; J2405; J3010

== ENCOUNTER 2024-09-05 06:11 | Day surgery (SDC) | payer OTHER ==
--- NOTE | 2024-09-04 12:44 | EKG ---
Test Date: 2024-09-03 Test Time: 09:43:54 Electricians Top Helper: STEPHEN MEASUREMENT RESULTS: Intervals: Rate: 58 [place]: 190 QRSD: 84 QT: 468 QTc: 459 [place]: P: 77 [place]: 190 QRS: 61 T: 85 INTERPRETIVE STATEMENTS: Sinus bradycardia Septal infarct, age undetermined Abnormal ECG Compared to ECG 03/16/2023 13:20:31 Sinus rhythm no longer present Right-axis deviation no longer present Myocardial infarct finding still present Electronically Signed On 09-04-24 12:41:42 INSTALLATION SERVICE REPRESENTATIVE by Girish Escobar
[2024-09-05] MEDS ORDERED: Ringers Lactate 1,000 ML IV ONE (06:25)
[2024-09-05] MEDS ORDERED: NS 0.9% VIAL 20 ML ONE (07:06)
[2024-09-05] MEDS ORDERED: HEPARIN 5000 UNIT/ML 1 ML VIAL ONE (07:06)
[2024-09-05] MEDS ORDERED: LIDOCAINE 2% MPF 5 ML VIAL ONE (07:14)
[2024-09-05] MEDS ORDERED: ONDANSETRON 4 MG/2 ML VIAL ONE (07:14)
[2024-09-05] MEDS ORDERED: propofoL 200 MG/20 ML VIAL IV ONE (07:15)
[2024-09-05] MEDS ORDERED: FENTANYL CITR 100 MCG/2 ML ONE (07:15)
[2024-09-05] MEDS ORDERED: EPHEDRINE SULF 50 MG/ML VIAL ONE (07:38)
[2024-09-05] MEDS ORDERED: dexAMETHasone 4 MG/ML VIAL ONE (07:40)
[2024-09-05] MEDS ORDERED: GLYCOPYRROLATE 0.2 MG/ML SYR ONE (07:41)
[2024-09-05] MEDS: CEFAZOLIN SODIUM 2 GM/VIAL ONE (07:50)
[2024-09-05] MEDS: LIDOCAINE 1% 20 ML MDV ONE (08:03)
[2024-09-05] MEDS ORDERED: Mastisol Adhesive Liq ONE (08:15)
--- NOTE | 2024-09-05 08:51 | P.OP ---
Date of Service: 09/05/24 Preop diagnosis: Lung cancer Postop diagnosis: Same Procedure performed: Placement of right IJ Port-A-Cath device, utilization of Doppler and fluoroscopy Surgeon: Jeramy Mathews MD Radiologic Tech: Candy CHUA Estimated blood loss: Minimal Specimen: None Findings: Normal anatomy Anesthesia: General Complications: None Drains: None Fluids and blood products: Nonapplicable Disposition: Recovery room Operative note: Patient brought to the OR and placed in supine position. General anesthesia began. Patient prepped and draped in usual sterile fashion. Lidocaine 1% infiltrated locally. Doppler device used to isolate the right internal jugular vein. 18-gauge needle used to access the right internal jugular vein and guidewire passed under fluoroscopy. Position confirmed. 3 cm counterincision made on the right anterior chest. Pocket created. Tunneling device used to tunnel the catheter between the 2 wounds. Seldinger technique used to put the tip of the catheter into the SVC right atrial junction. Catheter cut to appropriate size and attached to the Port-A-Cath device. Port-A-Cath device attached to the subcutaneous tissue with 3-0 Vicryl. The Port-A-Cath flushed with heparin and packed with heparin. There was good blood flow. 3-0 chromic used to approximate subcutaneous tissue and close skin. Aiden rile dressing applied. Patient awakened and taken to recovery room in good general condition. CC: Dr. Sánchez's office
--- NOTE | 2024-09-05 08:54 | RAD REPORT ---
Procedure: Chest Single View HISTORY: Central venous catheter placement FINDINGS: Central venous catheter has been inserted with its tip into the superior vena cava. No pneumothorax.
[2024-09-05 09:09] VITALS: O2SAT 96
[2024-09-05] MEDS ORDERED: TRAMADOL 37.5mg/APAP 325mg PER TAB ONE (09:47)
--- NOTE | 2024-09-05 09:56 | RAD REPORT ---
Exam: Fluoroscopy less than one hour CLINICAL HISTORY: Portacatheter placement FINDINGS: 3 fluoroscopic spot images submitted. Fluoroscopy time 0.1 minute. A central venous catheter is in place into the superior vena cava. The procedure performed by Dr. Tariq garcia
[2024-09-05] MEDS: TRAMADOL 37.5mg/APAP 325mg PER TAB PO PRN (10:00)
[2024-09-05 10:29] VITALS: BP 132/76
[2024-09-05 10:30] VITALS: TEMP 97
== END 2024-09-05 10:13 | disposition home or self-care (01) ==
LOC: OR 06:11
PROVIDERS: ATTEND Surgery
PROC: 0JH60WZ Insertion of Totally Implantable Vascular Access Device into Chest Subcutaneous Tissue and Fascia, Open Approach (ICD-10-PCS; principal; 2024-09-05 07:30)
DX: C34.12 Malignant neoplasm of upper lobe, left bronchus or lung (principal)
CPT/HCPCS: 93005; 71045; 36561; J1644 ×2; A4216; J2704; J1100; J2003 ×2; J3010; J2405; J7120; C1788 ×2; 76000

== ENCOUNTER 2024-10-17 06:26 | Day surgery (SDC) | payer OTHER ==
[2024-10-15 14:33] LABS: Absolute Basophils 0.1 K/uL (0-0.5); Absolute Lymphocytes (CBC) 2.6 K/uL (0.7-4.9); Absolute Monocytes 0.8 K/uL (0.1-1.3); Absolute Neutrophil 9.5 K/uL (1.8-8.0); Eosinophils % 0.3 % (0-4.4); Hematocrit 40.5 % (36.0-45.0); Hemoglobin 13.5 g/dL (12.0-15.0); Lymphocytes % 20.1 % (15.3-44.8); MCH 30.9 pg (27.0-35.0); MCHC 33.4 g/dL (32.0-36.0); MCV 92.5 fL (80-100); MPV 8.5 fL (7.6-11.3); Monocytes % 6.3 % (3.3-12.3); Neutrophils % 72.3 % (41.7-73.7); Nucleated Red Blood Cells % 0.1 % (0-0); Platelets 156 thou/uL (152-406); RBC Red Blood Cell Count 4.38 M/uL (3.86-4.86); Red Cell Distribution Width 15.7 % (12.1-15.2)
[2024-10-15 14:47] LABS: Anion Gap 6.6 mEq/L (5.0-15.0); Potassium 4.6 mEq/L (3.5-5.1)
[2024-10-17] MEDS: Ringers Lactate 1,000 ML IV ONE (07:05)
[2024-10-17] MEDS ORDERED: propofoL 200 MG/20 ML VIAL IV ONE (07:18)
[2024-10-17] MEDS ORDERED: MIDAZOLAM HCL 2 MG/2 ML INJ ONE (07:18)
[2024-10-17] MEDS ORDERED: FENTANYL CITR 100 MCG/2 ML ONE (07:18)
[2024-10-17] MEDS ORDERED: LIDOCAINE 1% MPF 5 ML VIAL ONE (07:18)
[2024-10-17] MEDS ORDERED: ONDANSETRON 4 MG/2 ML VIAL ONE (07:18)
[2024-10-17] MEDS ORDERED: EPHEDRINE SULF 50 MG/ML VIAL ONE (08:00)
[2024-10-17] MEDS: CEFAZOLIN SODIUM 2 GM/VIAL ONE (08:04)
[2024-10-17] MEDS: BUPIVACAINE 0.5% PF 10 ML VIAL ONE (08:07)
--- NOTE | 2024-10-17 08:26 | P.OP ---
Date of Service: 10/17/24 Preop diagnosis: Lung cancer status post Port-A-Cath placement Postop diagnosis: Same Procedure performed: Removal right chest Port-A-Cath Surgeon: Jeramy Mathews MD Warrant Server: None Estimated blood loss: Minimal Specimen: Port-A-Cath device Findings: As above Anesthesia: General Complications: None Drains: None Fluids and blood products: Nonapplicable Disposition: Recovery room Operative note: Patient brought to the OR and placed in supine position. General anesthesia began. Patient prepped and draped in the usual sterile fashion. Marcaine 0.5% infiltrated locally for postop pain control. Approximately 1 cm of the wound was already open. The remainder was opened with a 15 blade. There was no purulence in the wound. There is just some nonhealing tissue in the subcutaneous space. The Port-A-Cath was identified and dissected free from the surrounding tissue. Port-A-Cath device was removed. Port-A-Cath device was sent to pathology for identification. Wound irrigated and bleeding controlled cautery. 3-0 chromic used to reapproximate subcutaneous tissue and loosely close the skin. Sterile dressing applied. Patient awakened and taken to recovery room in good general condition. CC: Dr. Sánchez's office
[2024-10-17] MEDS ORDERED: TRAMADOL 37.5mg/APAP 325mg PER TAB ONE (09:23)
[2024-10-17] MEDS: TRAMADOL 37.5mg/APAP 325mg PER TAB PO PRN (09:27)
[2024-10-17 09:48] VITALS: BP 137/79; TEMP 97.7; O2SAT 98
== END 2024-10-17 09:44 | disposition home or self-care (01) ==
LOC: OR 06:26
PROVIDERS: ATTEND Surgery
PROC: 0JPT0WZ Removal of Totally Implantable Vascular Access Device from Trunk Subcutaneous Tissue and Fascia, Open Approach (ICD-10-PCS; principal; 2024-10-17 07:30)
DX: C34.12 Malignant neoplasm of upper lobe, left bronchus or lung (principal); Z45.2 Encounter for adjustment and management of vascular access device
CPT/HCPCS: 85025; 80048; 36415; 88300; 36590; J2704; J2003; J2250; J3010; J2405; J7120